=== PATIENT | female | born 1955 | race Caucasian/White ===

== ENCOUNTER 2018-04-28 14:00 | Inpatient (IN) | payer MEDICARE ==
--- NOTE | 2018-04-28 15:23 | CT ---
CT ABDOMEN AND PELVIS NONCONTRAST: History: Flank pain. FINDINGS: Each renal collecting system, ureter and urinary bladder are decompressed without stone evident. Lack of contrast limits evaluation for other abnormalities. Small hiatal hernia. Post-operative skinner es anterior abdominal wall. Degenerative changes lumbar spine. Gallbladder not visible. Possibly surg ically absent. Diverticula arise from the colon. Stranding within the fat within the right lower quad rant surrounds the sigmoid colon where there is extensive diverticular disease. No free air or free f luid. IMPRESSION: 1. No CT evidence of urinary tract obstruction or calcification. 2. Right lower quadrant mesenteric inflammation, favored to represent sigmoid diverticulitis. 3. Small hiatal hernia. POS: MEE
[2018-04-28] MEDS ORDERED: cefTRIAXone\\ROCEPHIN 1 GM VIAL ONE (16:23)
[2018-04-28] MEDS ORDERED: metroNIDAZOLE 250 MG TAB ONE (16:23)
[2018-04-28] MEDS ORDERED: Sodium Chloride 0.9% 100 ML ONE (16:23)
[2018-04-28] MEDS ORDERED: Bisacodyl 5 MG TAB PO PRN (18:05)
[2018-04-28] MEDS ORDERED: Dextrose 5% in Water 1,000 ML IV PRN (18:05)
[2018-04-28] MEDS ORDERED: Dextrose 50% Abboject 50 ML SYRINGE SLOW IVP PRN (18:05)
[2018-04-28] MEDS ORDERED: Diltiazem 125 MG in Sodium Chloride 0.9% 100 ML IVPB PRN (18:12)
--- NOTE | 2018-04-28 19:27 | HP ---
PRIMARY CARE PROVIDER: oRsalinda Gray M.D. CHIEF COMPLAINT: Abdominal pain. HISTORY OF PRESENT ILLNESS: Ms. Silva is a pleasant 62-year-old lady who was seen at [facility] on 04/28/2018 following transfer from [place] emergency room. She reports that about 2 months ago, she was noted to have a heart rate that went up and down. She saw a tank pumper for the same. She was hospitalized at [facility] in March for approximately a week for accidental overdose on insulin. She was released from the hospital on 04/03. During that hospitalization, she was found to have sleep disorder breathing. She was started on BiPAP. However, due to insurance reasons, she was unable to find a place to do her sleep study. Over the last 3 days, she has had right lower quadrant pain, sharp, on and off, no known aggravating or relieving factors, greater than 10/10 at its worst, not accompanied by fevers or chills. She denies any nausea or vomiting. She denies any chest pain. She came to the emergency room because of ongoing abdominal pain. She denies any history of diverticular disease. REVIEW OF SYSTEMS: All other systems reviewed and found to be negative. PAST MEDICAL HISTORY: Gastroesophageal reflux disease, diabetes mellitus, dyslipidemia, hypertension, sleep disordered breathing and arrhythmia. PAST SURGICAL HISTORY: Bilateral knee replacement, cholecystectomy, and tonsillectomy. PSYCHIATRIC HISTORY: None. SOCIAL HISTORY: The patient denies tobacco use, alcohol use or recreational drug use. FAMILY HISTORY: No family history of premature coronary artery disease. ALLERGIES: PENICILLIN. CURRENT MEDICATIONS: Eliquis 5 mg 2 times a day, aspirin 81 mg daily, atenolol 50 mg daily, Lasix 20 mg daily, hydralazine 25 mg daily, Imitrex 50 mg daily, Novolin R by sliding scale, magnesium sulfate injection and simvastatin 10 mg daily. PHYSICAL EXAMINATION: GENERAL: On examination, Ms. Silva is awake and alert, not in acute distress. She is morbidly obese. VITAL SIGNS: Blood pressure is 119/73, pulse 94, respiratory rate 16, and oxygen saturation 97% on 2 liters. EYES: No scleral icterus. No conjunctival pallor. ENT: Moist mucosal membranes, no oropharyngeal erythema or exudates. NECK: Supple, nontender. Trachea is midline. RESPIRATORY: Accessory muscles of breathing are not active. Chest wall movements are symmetric bilaterally. LUNGS: Clear to auscultation without wheeze, rhonchi or crepitations. CARDIOVASCULAR: S1 and S2 are heard, regular. Peripheral pulses are palpable. No carotid bruit, no pericardial rub. ABDOMEN: Soft, distended, mild right lower quadrant tenderness, no guarding or rigidity, bowel sounds heard. NEUROLOGIC: Cranial nerves II-XII intact. Deep tendon reflexes 2+. MUSCULOSKELETAL: Power is 5/5 in all 4 extremities. SKIN: No rashes or subcutaneous nodules. LYMPHATIC: No cervical lymphadenopathy. PSYCHIATRIC: Normal mood, normal affect. The patient is oriented to person, place, and time. IMAGING DATA AND LABORATORY DATA: Ms. Silva's labs and investigations were reviewed. I reviewed her electrocardiogram, which shows atrial flutter with variable atrioventricular block. I also reviewed her chest x-ray, which does not show any pulmonary infiltrates. She also had a noncontrast CT scan of the abdomen and pelvis, which did not show any CT evidence of urinary tract obstruction or calcification. She had right lower quadrant mesenteric inflammation, favored to represent sigmoid diverticulitis. She also had a small hiatal hernia. She has leukocytosis with 12,400 white cells, of which 75 % are neutrophils, microcytic anemia with hemoglobin 10.1, normal platelet count , normal electrolytes, elevated blood urea nitrogen of 21, elevated creatinine of 1.61, creatinine was 1.66 in 06/2016, normal total bilirubin, normal AST, normal ALT, normal alkaline phosphatase and normal troponin I. BNP is mildly elevated at 191. Urinalysis is positive for a small amount of bilirubin and ketones. ASSESSMENT AND PLAN: Ms. Silva is a pleasant 62-year-old lady who was seen at [facility] following transfer from the emergency room at [place]. Her problem list includes: 1. Sepsis: Ms. Silva's presentation meets the criteria for sepsis, suspected source of infection, diverticulitis. She was tachycardic with a pulse rate of 123 on presentation and has leukocytosis. She will be admitted to the hospital for further management. 2. Diverticulitis: She will be treated with intravenous ciprofloxacin, adjusted for renal function and intravenous metronidazole. Gastroenterology Service will be consulted. She will be started on clear fluid diet at this time. 3. Atrial flutter: She is currently on a Cardizem drip. When she presented to the emergency room at [place], she was found to be in atrial flutter which is why she was transferred to this emergency room. She subsequently underwent a CT scan of the abdomen for her abdominal complaints. She was initially on a Cardizem drip. She also received oral Cardizem. I will continue her on Cardizem drip for now. We will also continue on Eliquis. We will consult Cardiology Service for opinion and help with management. 4. Diabetes mellitus: Start Accu-Cheks, insulin sliding scale. 5. Morbid obesity: Patient reports losing 17 pounds over the last 3 weeks intentionally. We will consult dietitian for help. 6. Hypertension: Monitor vital signs and titrate antihypertensives as needed. 7. Dyslipidemia: Continue statin. Many thanks for allowing me to participate in your patient's care. Please feel free to contact me with any questions or concerns. LEVEL OF RISK: High. LEVEL OF COMPLEXITY: High. MTDD
[2018-04-28] MEDS ORDERED: Heparin 5,000 UNITS/ML VIAL SC SCH (21:00)
[2018-04-28] MEDS: metroNIDAZOLE 500 MG in Premix Bag 1 BAG IVPB SCH (21:11)
[2018-04-29 00:33] VITALS: BMI 67.3
[2018-04-29 05:33] LABS: #Basophils 0.1 thou/uL (0.0-0.2); #Eosinphils 0.1 thou/uL (0.0-0.7); #Monocytes 0.9 thou/uL (0.11-0.59); #Neutrophils 7.4 thou/uL (1.40-6.50); %Basophils 0.6 % (0.0-1.0); %Eosinophils 1.1 % (0.0-10.0); %Lymphocytes 10.7 % (21.0-51.0); %Monocytes 9.9 % (0.0-10.0); %Neutrophils 77.8 % (42.0-75.0); Hemoglobin 10.2 g/dL (12.0-16.0); Mean Corpuscular HGB CONC 30.8 g/dL (32.0-36.0); Mean Corpuscular Hemoglobin 26.1 pg (27.0-31.0); Mean Corpuscular Volume 84.7 fL (78.0-98.0); Mean Platelet Volume 7.6 fL (7.4-10.4); Platelet Count 277 thou/uL (130-400); White Blood Cell (WBC) Count 9.6 thou/uL (4.8-10.8)
[2018-04-29 05:46] LABS: Anion Gap 16 mmol/L (10-20); BUN (Urea Nitrogen) 18 mg/dL (9.8-20.1); Calc. Creatinine Clearance 110 mL/min (70-130); Calcium 9.5 mg/dL (7.8-10.44); Carbon Dioxide 21 mmol/L (23-31); Chloride 103 mmol/L (98-107); Estimated GFR-MDRD 36; Glucose 137 mg/dL (80-115); Sodium 135 mmol/L (136-145)
[2018-04-29] MEDS: metroNIDAZOLE 500 MG in Premix Bag 1 BAG IVPB SCH ×3 (06:04→21:00)
[2018-04-29] MEDS ORDERED: Ondansetron HCl/PF 4 MG/2 ML Vial SLOW IVP PRN (07:49)
--- NOTE | 2018-04-29 11:47 | PDOC.PN ---
- Subjective Encounter Start Date: 04/29/18 Encounter Start Time: 07:00 Pt seen for followup re: acute diverticulitis. Abdo pain is better. Nausea+. Did not sleep well. No vomiting. - Objective MAR Reviewed: Yes Vital Signs & Weight: Vital Signs (12 hours) Temp Pulse Resp BP Pulse Ox 04/29/18 11:23 97.7 F 104 H 19 172/75 H 95 04/29/18 08:07 97.7 F 110 H 18 131/98 H 95 04/29/18 06:33 125 H 14 156/84 H 97 04/29/18 00:17 130 H 24 H 95 04/29/18 00:00 99 164/92 H Weight Admit Weight 392 lb 12.8 oz Weight 392 lb 12.8 oz I&O: 04/28/18 04/29/18 04/30/18 06:59 06:59 06:59 Intake Total 1000 Output Total 1300 Balance -300 Result Diagrams: 04/29/18 05:17 04/29/18 05:17 Additional Labs: Accuchecks 04/29/18 04/29/18 04/28/18 10:28 05:33 19:27 POC Glucose 167 H 142 H 112 H EKG Reviewed by me: Yes (Tele: [email or web address] [email or web address]) Phys Exam - Physical Examination Morbid obesity HEENT: moist MMs, sclera anicteric, oral pharynx no lesions, 2+ tonsils Neck: supple Respiratory: no wheezing, no rales, no rhonchi, clear to auscultation bilateral Cardiovascular: no rub, irregular S1, S2 Gastrointestinal: soft, non-tender, positive bowel sounds distention Neurological: moves all 4 limbs Psychiatric: normal affect, A&O x 3 Dx/Plan (1) Acute diverticulitis Code(s): K57.92 - DVTRCLI OF INTEST, PART UNSP, W/O PERF OR ABSCESS W/O BLEED Status: Acute Comment: continue IV ciprofloxacin and metronidazole (2) Atrial fibrillation with RVR Code(s): I48.91 - UNSPECIFIED ATRIAL FIBRILLATION Status: Acute Comment: increase cardizem rate to 7.5 mg/hr (3) Insomnia Code(s): G47.00 - INSOMNIA, UNSPECIFIED Status: Acute Comment: start PRN melatonin (4) Morbid obesity Code(s): E66.01 - MORBID (SEVERE) OBESITY DUE TO EXCESS CALORIES Status: Chronic Comment: dietitian to see pt (5) DM2 (diabetes mellitus, type 2) Status: Chronic Comment: resume home meds, continue insulin sliding scale and accuchecks (6) Sleep-disordered breathing Code(s): G47.30 - SLEEP APNEA, UNSPECIFIED Status: Chronic Comment: BiPAP while asleep - Plan continue antibiotics, out of bed/ambulate * . Review of Systems - Review of Systems Constitutional: negative: fever, chills, sweats, weakness, malaise Respiratory: negative: Cough, Shortness of Breath, SOB with Excertion, Pleuritic Pain, Wheezing Cardiovascular: negative: chest pain, palpitations, orthopnea, paroxysmal nocturnal dyspnea, edema, light headedness Gastrointestinal: Nausea, Abdominal Pain. negative: Vomiting, Diarrhea, Constipation, Melena, Hematochezia Genitourinary: negative: Dysuria, Frequency, Incontinence, Hematuria, Retention Skin: negative: Rash, Lesions, [place], Bruising - Medications/Allergies Allergies/Adverse Reactions: Allergies Allergy/AdvReac Type Severity Reaction Status Date / Time Penicillins Allergy Verified 04/29/18 00:36 Medications: Current Medications Bisacodyl (Dulcolax) 10 mg PO DAILYPRN PRN PRN Reason: Constipation Dextrose/Water (Dextrose 50%) 25 gm SLOW IVP PRN PRN PRN Reason: Hypoglycemia Glucagon (Glucagon) 1 mg IM PRN PRN PRN Reason: Hypoglycemia Metronidazole 500 mg/ Device 100 mls @ 100 mls/hr IVPB Q8HR [facility] Last Admin: 04/29/18 06:04 Dose: 100 mls Ciprofloxacin/Dextrose 400 mg/ (Device) 200 mls @ 200 mls/hr IVPB Q18H [facility] Last Admin: 04/28/18 21:11 Dose: 200 mls Dextrose/Water (D5w) 1,000 mls @ 0 mls/hr IV .Q0M PRN PRN Reason: Hypoglycemia Diltiazem HCl 125 mg/ Sodium (Chloride) 125 mls @ 5 mls/hr IVPB INF PRN; Protocol PRN Reason: For HR>120 sustained Last Admin: 04/29/18 00:13 Dose: 125 mls Insulin Human Lispro (Humalog) 0 units SC .MILD SLIDING SCALE PRN PRN Reason: Mild Correctional Scale Melatonin (Melatonin) 3 mg PO HS PRN PRN Reason: Insomnia Morphine Sulfate (Morphine) 2 mg SLOW IVP Q6H PRN PRN Reason: Pain Ondansetron HCl (Zofran) 4 mg SLOW IVP Q6H PRN PRN Reason: Nausea/Vomiting Last Admin: 04/29/18 08:02 Dose: 4 mg
[2018-04-29] MEDS ORDERED: Ondansetron ODT 4 MG TAB PO PRN (11:51)
[2018-04-29] MEDS ORDERED: SUMAtriptan Succinate 50 MG TAB PO PRN (12:12)
[2018-04-29] MEDS ORDERED: Dextrose 5% in Water 1,000 ML IV PRN (12:16)
[2018-04-29] MEDS ORDERED: Dextrose 50% Abboject 50 ML SYRINGE IVP PRN (12:16)
[2018-04-29] MEDS: hydrALAZINE 25 MG TAB PO SCH ×2 (14:13→21:00)
--- NOTE | 2018-04-29 15:16 | CON ---
DATE OF CONSULTATION: 04/29/2018 REASON FOR CONSULTATION: Atrial flutter. PRIMARY CARE PROVIDER: Dr. Vishal Rivas HISTORY OF PRESENT ILLNESS: Ms. Silva is a 62-year-old woman who recently presented with diverticul itis. She was found to be in atrial flutter requiring IV Cardizem. She gives a history of being diagnosed with atrial flutter with palpitations 3 months ago. She was s een and evaluated by calciner feeder of unknown name. She was placed on Eliquis. She appeared to be ra te controlled. There was no mention of an ablation. She then presented with the above with lower ab dominal discomfort and increased heart rate. She was placed on 7.5 mg of Cardizem. PAST MEDICAL HISTORY: Obstructive sleep apnea, diabetes mellitus and hypertension. CURRENT MEDICATIONS: Not listed. ALLERGIES: PENICILLIN. SOCIAL HISTORY: No current tobacco or alcohol use. REVIEW OF SYSTEMS: Ten-point review of systems was reviewed as above, otherwise negative. PHYSICAL EXAMINATION: VITAL SIGNS: Blood pressure 110/70, pulse 80, respirations 20. GENERAL: Patient is a pleasant female who is in no acute distress. The patient appears her stated ag e. She does appear [place]wick[place]. NEUROLOGIC: The patient is alert and oriented times 3 with no focal neurologic deficits. HEENT: Sclerae without icterus. Mouth has moist mucous membranes with normal pallor. NECK: No JVD. Carotid upstroke brisk. No bruits bilaterally. LUNGS: Clear to auscultation with unlabored respirations. BACK: No scoliosis or kyphosis. CARDIAC: Irregularly irregular. ABDOMEN: Soft, nontender, nondistended. No peritoneal signs present. No hepatosplenomegaly. No abn ormal striae. EXTREMITIES: 2+ femoral and 2+ dorsalis pedis pulses. No cyanosis, clubbing, 1+ edema. SKIN: No gross abnormalities. PERTINENT LABORATORY DATA: Currently not available on [employer]ant[employer]. IMPRESSION: 1. Atrial flutter. 2. Diverticulitis. RECOMMENDATIONS: We will add p.o. Cardizem as I try and titrate down her IV Cardizem. She has been on Eliquis for a month. We will ask Dr. Vann to consult. May consider ablation, although at this c urrent scenario may need to defer as outpatient.
[2018-04-29] MEDS: HumaLOG 300 UNITS/3 ML VIAL SC SCH (17:42)
[2018-04-29] MEDS: Mometasone/Formoterol 120 PUFF INHALER INH SCH (18:52)
[2018-04-29] MEDS: Simvastatin 40 MG TAB PO SCH (20:59)
[2018-04-29] MEDS: Lubiprostone 24 MCG CAP PO SCH (20:59)
[2018-04-29] MEDS: Apixaban 5 MG TAB PO SCH (21:00)
[2018-04-29] MEDS: Melatonin 3 MG TAB PO PRN (22:02)
[2018-04-30 05:32] LABS: #Basophils 0.1 thou/uL (0.0-0.2); #Eosinphils 0.2 thou/uL (0.0-0.7); #Lymphocytes 1.6 thou/uL (1.20-3.40); #Monocytes 0.9 thou/uL (0.11-0.59); #Neutrophils 8.2 thou/uL (1.40-6.50); %Basophils 0.5 % (0.0-1.0); %Eosinophils 1.9 % (0.0-10.0); %Lymphocytes 14.5 % (21.0-51.0); %Monocytes 8.1 % (0.0-10.0); Hemoglobin 10.9 g/dL (12.0-16.0); Mean Corpuscular HGB CONC 30.9 g/dL (32.0-36.0); Mean Corpuscular Volume 84.2 fL (78.0-98.0); Mean Platelet Volume 6.9 fL (7.4-10.4); Platelet Count 340 thou/uL (130-400); RBC Distribution Width 15.1 % (11.5-14.5)
[2018-04-30 05:48] LABS: Anion Gap 14 mmol/L (10-20); BUN (Urea Nitrogen) 14 mg/dL (9.8-20.1); Calc. Creatinine Clearance 108 mL/min (70-130); Calcium 10.3 mg/dL (7.8-10.44); Carbon Dioxide 24 mmol/L (23-31); Chloride 102 mmol/L (98-107); Estimated GFR-MDRD 36; Glucose 169 mg/dL (80-115); Iron 21 ug/dL (50-170); Iron Binding Capacity, Total 349 mcg/dL (265-497); Potassium 4.4 mmol/L (3.5-5.1); Sodium 136 mmol/L (136-145)
[2018-04-30] MEDS: metroNIDAZOLE 500 MG in Premix Bag 1 BAG IVPB SCH ×3 (05:56→21:31)
[2018-04-30] MEDS: Mometasone/Formoterol 120 PUFF INHALER INH SCH ×2 (06:36→19:14)
[2018-04-30] MEDS: Fish Oil 1,000 MG CAP PO SCH (08:50)
[2018-04-30] MEDS: Fluticasone Propionate Nasal Spray 16 gm Bottle NASAL SCH (08:51)
[2018-04-30] MEDS: HumaLOG 300 UNITS/3 ML VIAL SC SCH ×3 (08:52→17:05)
[2018-04-30] MEDS: Insulin Glargine 20 UNITS in Pre-Filled Syringe 1 EACH SC SCH (08:52)
[2018-04-30] MEDS ORDERED: Non-Formulary Item 1 EACH (Insulin Degludec [Tresiba Flextouch U-100] 20 UNIT) SC SCH (09:00)
--- NOTE | 2018-04-30 09:52 | CON ---
DATE OF CONSULTATION: 04/29/2018 REASON FOR CONSULTATION: Possible diverticulitis. HISTORY OF PRESENT ILLNESS: Ms. Silva is a 62-year-old female who came to the hospital on 8 for abdominal pain. She apparently was in [place] ER and some right lower quadrant pain, worsenin g for about the past 4 days. In the emergency room there, she was found to have atrial flutter and s he was transferred here. She reports that she has had a previous history of labile heart rate and bautista s to see a tool and die maker/designer as a result of that. She has been started on medicines for fibrillation here and is waiting to see cannoneer. In regard to her abdominal pain, she denies having diver ticulitis in the past. This pain was dull and became more and more sharp in the right lower quadrant , was nonradiating. There is no relation to meal. She has had decreased appetite. There was no ove rt fever or chills. She denied any nausea or vomiting. She has not been having much in the way of Snapdeal for the last couple of days, because she has not been eating much. She was hospitaliz ed at [facility] in March apparently for accidental overdose on insulin. On that admission, she had some issues with sleep apnea, started on BiPAP, but apparently she has not had a sleep study yet. She has had prior history of anemia and underwent upper and lower endoscopy with Dr. Dumont many years ago, in 2007 it seems, and those studies were negative. She reports that she had endoscopy and colon oscopy recently about 6 years ago in [place] with the surgeons at the [facility] that were normal . PAST MEDICAL HISTORY: Reflux, diabetes, dyslipidemia, hypertension, hypoventilation syndrome, possib ly sleep apnea, and arrhythmia. PAST SURGICAL HISTORY: Bilateral knee replacements, cholecystectomy, tonsillectomy, previous upper a nd lower endoscopies as noted above. PAST PSYCHIATRIC HISTORY: None. SOCIAL HISTORY: The patient denies tobacco use. She stopped recently. She does not drink or use dr oliveira. She has recently started a diet and lost 17 pounds. ALLERGIES: PENICILLIN. HOME MEDICATIONS: Eliquis, atenolol, Lasix, hydralazine, Imitrex, Novolin insulin, magnesium, simvas tatin. PRESENT MEDICATIONS HERE IN THE HOSPITAL: Eliquis, Ecotrin, Dulcolax, ciprofloxacin IV daily, diltia zem, Flonase, insulin sliding scale, Amitiza, melatonin, Flagyl 500 IV q.8 hours, p.r.n. Zofran, Zoco r, and Imitrex. REVIEW OF SYSTEMS: Negative for dyspnea on exertion. Negative for chest pain. Negative for dysphag ia or odynophagia. Negative for melena, hematochezia, or hematemesis. PHYSICAL EXAMINATION: VITAL SIGNS: Temperature is 98.6, pulse 106-110, blood pressure 154/78. GENERAL: She is overweight. She is in no distress. LUNGS: Decreased breath sounds in the bases. HEART: Faint sounds. EXTREMITIES: No clubbing, cyanosis. There is a slight stasis, but no overt edema. ABDOMEN: Notable for large pannus. There is no rebound. There is no guarding. SKIN: Without sores or lesions. There is mild tenderness in the right lower quadrant. There is no evidence of inguinal or femoral hernias. LABORATORY STUDIES: Hemoglobin was 10.2 on admission; MCV was 74, now 84; platelet count 289; 75% se gs; white count 12.4, now 8.6. Sodium 135, potassium 5, BUN and creatinine 18 and 1.45. Electrolyte s are normal. Liver function test normal with AST and ALT of 10. Troponins were negative. RADIOGRAPHIC STUDIES: The patient had a CAT scan, which showed some mild stranding in the right lowe r quadrant, noncontrast study. There is no evidence of free fluid. I have reviewed these films like ly it is related to diverticular disease in the sigmoid colon over to the right side of the abd omen. ASSESSMENT: 1. Noncomplicated diverticulitis, may be related to recent change in diet and rapid weight loss. 2. Atrial fibrillation. 3. History of CO2 retention with sleep. It is unclear if it is hypoventilation syndrome or some typ e of sleep apnea. 4. Diabetes. 5. Anemia, microcytic, mild. RECOMMENDATIONS: 1. Iron studies. 2. Continue present antibiotics. 3. Consider further GI workup in the outpatient setting. We are going to get her colonoscopy and EG D report from [place] recently and see what those showed. May not need to re-embark on any workup.
[2018-04-30] MEDS: Lubiprostone 24 MCG CAP PO SCH ×2 (10:34→21:31)
[2018-04-30] MEDS: Apixaban 5 MG TAB PO SCH ×2 (10:34→21:30)
[2018-04-30] MEDS: Aspirin 81 mg Enteric Coated Tablet PO SCH (10:36)
[2018-04-30] MEDS: Magnesium Oxide 400 MG TAB PO SCH (10:36)
[2018-04-30] MEDS: Multivitamin W/ Minerals 1 TAB PO SCH (10:37)
[2018-04-30] MEDS: Furosemide 20 MG TAB PO SCH (10:37)
[2018-04-30] MEDS: hydrALAZINE 25 MG TAB PO SCH ×3 (10:37→21:30)
[2018-04-30] MEDS: Ubidecarenone 50 MG CAP PO SCH (10:52)
--- NOTE | 2018-04-30 11:24 | CON ---
DATE OF CONSULTATION: 04/29/2018 ELECTROPHYSIOLOGY CONSULTATION REFERRING PHYSICIAN: MD Dr. Dank Perdue, I am seeing Ms. Silva at our [facility] Telemetry Floor as an electrophysiol ogy oracle wms consultant. Her problems are: 1. Persistent typical atrial flutter. 2. Abdominal discomfort, possible diverticulitis followed by GI, on IV antibiotics, improving. 3. Chronic anticoagulation with Eliquis. 4. History of sleep apnea. 5. Morbid obesity. 6. Type 2 diabetes. 7. Hypertension. ALLERGIES: PENICILLINS. MEDICATIONS AT HOME: Included carboxymethyl/gly/poly80/PF eye drops, simvastatin, Victoza, Zofran, m ultivitamin, magnesium oxide, Amitiza, insulin, sumatriptan, hydralazine, furosemide, fluticasone, om ega-3 fatty acid, Ubidecarenone, atenolol, aspirin, apixaban. SUBJECTIVE: Ms. Silva is here with stomach issues. She was admitted with a diagnosis of diverticul itis. Sepsis was also suspected. She was placed on IV antibiotics and improving. EKGs did reveal s ustaining atrial flutter, although reasonable rate control was achieved with IV diltiazem from initia l rapid rates. She never passed out. No stroke-like symptoms. No neurological deficits. No fever, chills, cough currently. Rest of 12-point system otherwise unremarkable. Of note, the patient has been losing about 70 pounds last month or so. The discomforts in the abdomen was worse, 10/10, but n ot markedly improving. OBJECTIVE: VITAL SIGNS: Blood pressure is 154/78, heart rate is 106, respirations 17, temperature 98.8 degrees Fahrenheit currently. The initial heart rates were up to 130 beats per minute, but blood pressure wa s never low. Lowest registered were systolic 130s. GENERAL: This is an alert, oriented, morbidly obese woman with admit weight of 390 pounds, BMI is ca lculated to be 67. NECK: Supple. Jugular veins are not visible due to obesity. CHEST: Coarse. CARDIOVASCULAR: Distant heart sounds are heard. Irregularly irregular. S1, S2 are variable. I do not hear murmur or gallop. ABDOMEN: Benign. Currently, discomfort is resolved. Bowel sounds are positive. EXTREMITIES: Lower extremity without edema, clubbing, or cyanosis. Pulses are adequate. NEUROLOGIC: Nonfocal. MUSCULOSKELETAL: No joint swelling or deformities. SKIN: Without rash. DATABASE: The EKG was reviewed, revealed typical atrial flutter with ventricular rates of 74 beats p er minute. No significant ST-T changes. LABORATORY DATA: White count is 9.6, hemoglobin 10.2, platelet count is 277. Sodium 135, potassium 5, BUN is 18, creatinine 1.45. ASSESSMENT AND PLAN: Ms. Silva is a pleasant 62-year-old woman with prior history of some palpitati ons. She has typical isthmus-dependent flutter, which is steadily driving her heart very rapidly on admission, but now better controlled with the continued diltiazem drip. She had abdominal discomfort, which as I discussed with Dr. Newsome is likely to be diverticulitis. S he is receiving IV antibiotics. So far, no reaction to the continued anticoagulants and antiplatelet agent, the apixaban/aspirin, is noted. I discussed the etiology of her atrial flutter as well as the mechanism and potential treatment optio ns. We discussed option of cardioversion versus more invasive ablation therapy. I detailed my prefe rence for the ablation therapy, which would eliminate her atrial flutter circuit. On the other hand, I did detail the potential chance for additional left atrial arrhythmias. I would also detail the h igher than normal chance for complications due to her morbid obesity, which might even be prohibitive for finding access to the veins; and also anesthesia related complications could serve us. At this point, she will require further therapy for her abdominal issues. She is on Rocephin. Once stabiliz ed, we will make decision between cardioversion versus ablation therapy. Thank you again for allowing me to participate in the care of this patient.
[2018-04-30] MEDS: HumaLOG 300 UNITS/3 ML VIAL SC PRN ×2 (12:48→21:32)
[2018-04-30] MEDS: Diltiazem 125 MG in Sodium Chloride 0.9% 100 ML IVPB SCH (15:03)
--- NOTE | 2018-04-30 15:24 | PDOC.CTH ---
Cardiology Progress Note - Subjective EP progress note: Patient seen and evaluated. No new cardiac concerns or complaints today. - Objective Vital Signs Temp Pulse Resp BP Pulse Ox 04/30/18 15:11 98.3 F 137 H 16 117/76 94 L 04/30/18 12:00 98.4 F 86 14 151/76 H 04/30/18 08:00 97.3 F L 136 H 14 134/89 96 04/30/18 07:45 97.3 F L 136 H 14 96 04/30/18 04:00 97.8 F 132 H 16 164/95 H 92 L Admit Weight 392 lb 12.8 oz Weight 392 lb 12.8 oz 04/29/18 04/30/18 05/01/18 06:59 06:59 06:59 Intake Total 1000 1440 Output Total 1300 1850 Balance -300 -410 - Physical Examination General/Neuro: alert & oriented x3, NAD Neck: carotid US brisk, no JVD present Lungs: unlabored respirations, other: (distant lung sounds due to obesity) Heart: other: Abdomen: soft - Telemetry Telemetry Rhythm: Atrial flutter - Labs Result Diagrams: 04/30/18 05:10 04/30/18 05:10 - Assessment/Plan 1. CTI dependent typical atrial flutter, rate controlled on cardizem gtt. Plan for DCCV tomorrow. Antiarrythmic medication vs ablation if recurrence is seen. 2. CHADS2-VASc: 3 (female, HTN, diabetes) Continue Eliquis, no evidence of bleeding complications. 3. Morbid obesity, recommended weight loss
[2018-04-30] MEDS: (Liraglutide [Victoza 2-Pak] 1.2 MG) SC SCH (17:40)
--- NOTE | 2018-04-30 18:31 | PDOC.PN ---
- Subjective Encounter Start Date: 04/30/18 Encounter Start Time: 07:40 Pt seen for followup re: acute diverticulitis. Feels better. No chest pain or shortness of breath. - Objective MAR Reviewed: Yes Vital Signs & Weight: Vital Signs (12 hours) Temp Pulse Resp BP Pulse Ox 04/30/18 15:11 98.3 F 137 H 16 117/76 94 L 04/30/18 12:00 98.4 F 86 14 151/76 H 04/30/18 08:00 97.3 F L 136 H 14 134/89 96 04/30/18 07:45 97.3 F L 136 H 14 96 Weight Admit Weight 392 lb 12.8 oz Weight 392 lb 12.8 oz I&O: 04/29/18 04/30/18 05/01/18 06:59 06:59 06:59 Intake Total 1000 1440 Output Total 1300 1850 Balance -300 -410 Result Diagrams: 05/01/18 05:16 05/01/18 05:16 Additional Labs: Accuchecks 04/30/18 04/30/18 04/30/18 16:57 10:38 01:25 POC Glucose 150 H 243 H 164 H 04/29/18 21:04 POC Glucose 195 H EKG Reviewed by me: Yes (Tele: guanako rodrigues) Phys Exam - Physical Examination Morbid obesity HEENT: moist MMs, sclera anicteric, oral pharynx no lesions, 2+ tonsils Neck: no nodes, no JVD, supple, full ROM Respiratory: no wheezing, no rales, no rhonchi, clear to auscultation bilateral S1, S2, tachy, reg Gastrointestinal: soft, non-tender, positive bowel sounds distended Neurological: moves all 4 limbs Psychiatric: normal affect, A&O x 3 Dx/Plan (1) Acute diverticulitis Code(s): K57.92 - DVTRCLI OF INTEST, PART UNSP, W/O PERF OR ABSCESS W/O BLEED Status: Acute Comment: pt clinically improving, change to oral antibiotics, advance diet (2) Atrial flutter Code(s): I48.92 - UNSPECIFIED ATRIAL FLUTTER Status: Acute Comment: For cardioversion today (3) Insomnia Code(s): G47.00 - INSOMNIA, UNSPECIFIED Status: Acute Comment: continue melatonin as needed (4) Morbid obesity Code(s): E66.01 - MORBID (SEVERE) OBESITY DUE TO EXCESS CALORIES Status: Chronic Comment: appreciate dietitian input (5) DM2 (diabetes mellitus, type 2) Status: Chronic Comment: continue insulin sliding scale and accuchecks (6) Sleep-disordered breathing Code(s): G47.30 - SLEEP APNEA, UNSPECIFIED Status: Chronic Comment: BiPAP while asleep - Plan * . Review of Systems - Review of Systems Constitutional: weakness. negative: fever, chills, sweats, malaise Respiratory: negative: Cough, Shortness of Breath, SOB with Excertion, Pleuritic Pain, Wheezing Cardiovascular: negative: chest pain, palpitations, orthopnea, paroxysmal nocturnal dyspnea, edema, light headedness Gastrointestinal: Abdominal Pain. negative: Nausea, Vomiting, Diarrhea, Constipation, Melena, Hematochezia Genitourinary: negative: Dysuria, Frequency, Incontinence, Hematuria, Retention Skin: negative: Rash, Lesions, [place], Bruising - Medications/Allergies Allergies/Adverse Reactions: Allergies Allergy/AdvReac Type Severity Reaction Status Date / Time Penicillins Allergy Verified 04/29/18 00:36 Medications: Current Medications Apixaban (Eliquis) 5 mg PO BID [facility] Last Admin: 04/30/18 10:34 Dose: 5 mg Aspirin (Ecotrin) 81 mg PO DAILY [facility] Last Admin: 04/30/18 10:36 Dose: 81 mg Bisacodyl (Dulcolax) 10 mg PO DAILYPRN PRN PRN Reason: Constipation Coenzyme Q10 (Coenzyme Q10) 30 mg PO DAILY [facility] Last Admin: 04/30/18 10:52 Dose: Not Given Dextrose/Water (Dextrose 50%) 25 gm IVP PRN PRN PRN Reason: HYPOGLYCEMIA PROTOCOL Fish Oil (Fish Oil) 1,000 mg PO DAILY [facility] Last Admin: 04/30/18 08:50 Dose: 1,000 mg Fluticasone Propionate (Flonase Nasal [place]) 0 gm NASAL DAILY [facility] Last Admin: 04/30/18 08:51 Dose: Not Given Furosemide (Lasix) 20 mg PO DAILY [facility] Last Admin: 04/30/18 10:37 Dose: 20 mg Glucagon (Glucagon) 1 mg IM PRN PRN PRN Reason: HYPOGLYCEMIA PROTOCOL Hydralazine HCl (Apresoline) 25 mg PO TID [facility] Last Admin: 04/30/18 15:03 Dose: 25 mg Metronidazole 500 mg/ Device 100 mls @ 100 mls/hr IVPB Q8HR [facility] Last Admin: 04/30/18 15:02 Dose: 100 mls Ciprofloxacin/Dextrose 400 mg/ (Device) 200 mls @ 200 mls/hr IVPB Q18H [facility] Last Admin: 04/30/18 08:56 Dose: 200 mls Diltiazem HCl 125 mg/ Sodium (Chloride) 125 mls @ 10 mls/hr IVPB INF [facility]; Protocol Last Admin: 04/30/18 15:03 Dose: 125 mls Dextrose/Water (D5w) 1,000 mls @ 0 mls/hr IV INF PRN PRN Reason: HYPOGLYCEMIA PROTOCOL Insulin Glargine 20 units/ (Miscellaneous Medication) 0.2 mls @ 0 mls/hr SC DAILY [facility] Last Admin: 04/30/18 08:52 Dose: 0.2 mls Insulin Human Lispro (Humalog) 0 units SC .MILD SLIDING SCALE PRN PRN Reason: Mild Correctional Scale Last Admin: 04/30/18 12:48 Dose: 3 unit Insulin Human Lispro (Humalog) 8 units SC TID-WM [facility] Last Admin: 04/30/18 17:05 Dose: 8 units Iron/Minerals/Multivitamins (Theragran M) 1 tab PO DAILY [facility] Last Admin: 04/30/18 10:37 Dose: 1 tab Lubiprostone (Amitiza) 24 mcg PO BID [facility] Last Admin: 04/30/18 10:34 Dose: 24 mcg Magnesium Oxide (Magnesium Oxide) 400 mg PO DAILY [facility] Last Admin: 04/30/18 10:36 Dose: 400 mg Melatonin (Melatonin) 3 mg PO HS PRN PRN Reason: Insomnia Last Admin: 04/29/18 22:02 Dose: 3 mg Mometasone Furoate/Formoterol Fumar (Dulera 100 Mcg/5 Mcg Inhaler) 2 puff INH BID-RT [facility] Last Admin: 04/30/18 06:36 Dose: 2 puff Morphine Sulfate (Morphine) 2 mg SLOW IVP Q6H PRN PRN Reason: Pain Ondansetron HCl (Zofran) 4 mg SLOW IVP Q6H PRN PRN Reason: Nausea/Vomiting Last Admin: 04/29/18 08:02 Dose: 4 mg Ondansetron HCl (Zofran Odt) 4 mg PO Q8HR PRN PRN Reason: Nausea Pantoprazole Sodium (Protonix) 40 mg PO DAILY PAT (Liraglutide [ Victoza 2-Sonu] 1.2 Mg) 0 each SC DAILY PAT Last Admin: 04/30/18 17:40 Dose: Not Given Simvastatin (Zocor) 40 mg PO HS PAT Last Admin: 04/29/18 20:59 Dose: 40 mg Sumatriptan Succinate (Imitrex) 100 mg PO Q2H PRN PRN Reason: Headache
[2018-04-30] MEDS ORDERED: Acetaminophen 325 MG TAB PO PRN (18:58)
[2018-04-30] MEDS: Simvastatin 40 MG TAB PO SCH (21:31)
[2018-04-30] MEDS: Melatonin 3 MG TAB PO PRN (21:31)
--- NOTE | 2018-05-01 00:57 | PRG ---
DATE OF SERVICE: 04/30/2018 SUBJECTIVE: Ms. Silva states that she is feeling better. She is eating better. She remains in atr ial fibrillation and she is waiting to find out when they can do the ablation. I did talk with her c ardiologist yesterday and told him that it was okay to start her on anticoagulation if there is a nee d to do that. PRESENT MEDICATIONS: Eliquis, Ecotrin, CoQ10, diltiazem, insulin sliding scale, Flagyl IV, ciproflox acin IV. PHYSICAL EXAMINATION: VITAL SIGNS: Temperature is 98.7, pulse 136, blood pressure 134/89. GENERAL: Patient is overweight. She is resting in bed. ABDOMEN: Soft, nontender. There is no rebound or guarding. LABORATORY STUDIES: White count 11.0, hemoglobin is 10.9, platelet count is 340. BUN is 14, creatin ine is 1.49, iron is 21, TIBC 249. Ferritin is 42. Basic metabolic profile is normal. ASSESSMENT: 1. Diverticulitis, improving. No signs of complications on imaging. 2. Atrial fibrillation. She has been sore on Eliquis. She has had no signs of bleeding. RECOMMENDATIONS: Continue IV antibiotics. Hopefully, the next day or so, she can be switched to p.o . antibiotics. She should have a colonoscopy in outpatient setting, may be in 4-6 weeks after this i s resolved. Secondary to her microcytic anemia and slightly low iron stores, will follow from a dist ance. If I can be of further assistance in her care, please do not hesitate to contact.
[2018-05-01] MEDS: Diltiazem 125 MG in Sodium Chloride 0.9% 100 ML IVPB SCH (04:51)
[2018-05-01] MEDS: metroNIDAZOLE 500 MG in Premix Bag 1 BAG IVPB SCH ×2 (04:51→16:19)
[2018-05-01 05:51] LABS: #Eosinphils 0.2 thou/uL (0.0-0.7); #Lymphocytes 1.2 thou/uL (1.20-3.40); #Monocytes 0.8 thou/uL (0.11-0.59); #Neutrophils 5.6 thou/uL (1.40-6.50); %Basophils 0.6 % (0.0-1.0); %Eosinophils 3.1 % (0.0-10.0); %Lymphocytes 14.9 % (21.0-51.0); %Monocytes 9.6 % (0.0-10.0); %Neutrophils 71.7 % (42.0-75.0); Hemoglobin 9.6 g/dL (12.0-16.0); Mean Corpuscular HGB CONC 31.3 g/dL (32.0-36.0); Mean Corpuscular Hemoglobin 26.2 pg (27.0-31.0); Mean Corpuscular Volume 83.6 fL (78.0-98.0); Mean Platelet Volume 6.7 fL (7.4-10.4); Platelet Count 283 thou/uL (130-400); RBC Distribution Width 14.8 % (11.5-14.5); Red Blood Cell (RBC) Count 3.65 mill/uL (4.20-5.40); White Blood Cell (WBC) Count 7.8 thou/uL (4.8-10.8)
[2018-05-01 06:01] LABS: Anion Gap 9 mmol/L (10-20); BUN (Urea Nitrogen) 13 mg/dL (9.8-20.1); Calc. Creatinine Clearance 115 mL/min (70-130); Calcium 9.7 mg/dL (7.8-10.44); Carbon Dioxide 28 mmol/L (23-31); Chloride 102 mmol/L (98-107); Estimated GFR-MDRD 38; Glucose 144 mg/dL (80-115); Potassium 3.9 mmol/L (3.5-5.1); Sodium 135 mmol/L (136-145)
[2018-05-01] MEDS ORDERED: PROPOFOL 40 ML ONE (08:44)
[2018-05-01] MEDS: Mometasone/Formoterol 120 PUFF INHALER INH SCH ×2 (08:55→18:36)
[2018-05-01] MEDS: HumaLOG 300 UNITS/3 ML VIAL SC SCH ×3 (09:21→17:21)
[2018-05-01] MEDS: Fluticasone Propionate Nasal Spray 16 gm Bottle NASAL SCH (09:23)
[2018-05-01] MEDS: Aspirin 81 mg Enteric Coated Tablet PO SCH (09:58)
[2018-05-01] MEDS: Multivitamin W/ Minerals 1 TAB PO SCH (09:58)
[2018-05-01] MEDS: Fish Oil 1,000 MG CAP PO SCH (09:58)
[2018-05-01] MEDS: hydrALAZINE 25 MG TAB PO SCH ×3 (09:58→19:59)
[2018-05-01] MEDS: Lubiprostone 24 MCG CAP PO SCH ×2 (09:58→19:59)
[2018-05-01] MEDS: Apixaban 5 MG TAB PO SCH ×2 (09:58→19:59)
[2018-05-01] MEDS: Magnesium Oxide 400 MG TAB PO SCH (09:58)
[2018-05-01] MEDS: Ubidecarenone 50 MG CAP PO SCH (09:59)
[2018-05-01] MEDS: (Liraglutide [Victoza 2-Pak] 1.2 MG) SC SCH (09:59)
[2018-05-01] MEDS: Insulin Glargine 20 UNITS in Pre-Filled Syringe 1 EACH SC SCH (10:03)
[2018-05-01] MEDS ORDERED: Lidocaine 1% PF 5 ML VIAL ONE (11:36)
[2018-05-01] MEDS ORDERED: PROPOFOL 200 MG/20 ML VIAL ONE (11:36)
[2018-05-01] MEDS: Furosemide 20 MG TAB PO SCH (15:10)
[2018-05-01] MEDS ORDERED: Diltiazem 125 MG in Sodium Chloride 0.9% 100 ML IVPB PRN (16:11)
--- NOTE | 2018-05-01 16:40 | PDOC.PN ---
- Subjective Encounter Start Date: 05/01/18 Encounter Start Time: 08:20 Pt seen for followup re: acute diverticulitis. Denies chest pain, abdo pain is better. - Objective MAR Reviewed: Yes Vital Signs & Weight: Vital Signs (12 hours) Temp Pulse Resp BP BP Pulse Ox 05/01/18 16:11 87 18 141/73 H 93 L 05/01/18 08:55 98.0 F 138 H 18 138/89 94 L 05/01/18 08:50 98.0 F 138 H 18 94 L 05/01/18 05:04 105 H 130/83 05/01/18 04:41 97.7 F 96 18 169/115 H 95 Weight Admit Weight 392 lb 12.8 oz Weight 392 lb 12.8 oz I&O: 04/30/18 05/01/18 05/02/18 06:59 06:59 06:59 Intake Total 1440 3725 Output Total 1850 1200 Balance -410 2525 Result Diagrams: 05/01/18 05:16 05/01/18 05:16 Additional Labs: Accuchecks 04/30/18 04/30/18 21:04 16:57 POC Glucose 214 H 150 H EKG Reviewed by me: Yes (Tele: guanako rodrigues) Phys Exam - Physical Examination Morbid obesity HEENT: moist MMs Neck: supple Respiratory: clear to auscultation bilateral S1, S2, reg, tachy Gastrointestinal: soft, non-tender Neurological: moves all 4 limbs Psychiatric: normal affect Dx/Plan (1) Acute diverticulitis Code(s): K57.92 - DVTRCLI OF INTEST, PART UNSP, W/O PERF OR ABSCESS W/O BLEED Status: Acute Comment: pt clinically improving, change to oral antibiotics, advance diet (2) Atrial flutter Code(s): I48.92 - UNSPECIFIED ATRIAL FLUTTER Status: Acute Comment: For cardioversion today (3) Insomnia Code(s): G47.00 - INSOMNIA, UNSPECIFIED Status: Acute Comment: continue melatonin as needed (4) Morbid obesity Code(s): E66.01 - MORBID (SEVERE) OBESITY DUE TO EXCESS CALORIES Status: Chronic Comment: appreciate dietitian input (5) DM2 (diabetes mellitus, type 2) Status: Chronic Comment: continue insulin sliding scale and accuchecks (6) Sleep-disordered breathing Code(s): G47.30 - SLEEP APNEA, UNSPECIFIED Status: Chronic Comment: BiPAP while asleep - Plan * . Review of Systems - Review of Systems Respiratory: negative: Cough, Shortness of Breath, SOB with Excertion, Pleuritic Pain, Wheezing Cardiovascular: negative: chest pain, palpitations, orthopnea, paroxysmal nocturnal dyspnea, edema, light headedness Gastrointestinal: Abdominal Pain - Medications/Allergies Allergies/Adverse Reactions: Allergies Allergy/AdvReac Type Severity Reaction Status Date / Time Penicillins Allergy Verified 04/29/18 00:36 Medications: Current Medications Acetaminophen (Tylenol) 650 mg PO Q6H PRN PRN Reason: Pain Last Admin: 04/30/18 19:08 Dose: 650 mg Apixaban (Eliquis) 5 mg PO BID [facility] Last Admin: 05/01/18 09:58 Dose: 5 mg Aspirin (Ecotrin) 81 mg PO DAILY [facility] Last Admin: 05/01/18 09:58 Dose: 81 mg Bisacodyl (Dulcolax) 10 mg PO DAILYPRN PRN PRN Reason: Constipation Coenzyme Q10 (Coenzyme Q10) 30 mg PO DAILY [facility] Last Admin: 05/01/18 09:59 Dose: Not Given Dextrose/Water (Dextrose 50%) 25 gm IVP PRN PRN PRN Reason: HYPOGLYCEMIA PROTOCOL Fish Oil (Fish Oil) 1,000 mg PO DAILY [facility] Last Admin: 05/01/18 09:58 Dose: 1,000 mg Fluticasone Propionate (Flonase Nasal [place]) 0 gm NASAL DAILY [facility] Last Admin: 05/01/18 09:23 Dose: Not Given Furosemide (Lasix) 20 mg PO DAILY [facility] Last Admin: 05/01/18 15:10 Dose: Not Given Glucagon (Glucagon) 1 mg IM PRN PRN PRN Reason: HYPOGLYCEMIA PROTOCOL Hydralazine HCl (Apresoline) 25 mg PO TID [facility] Last Admin: 05/01/18 16:21 Dose: 25 mg Metronidazole 500 mg/ Device 100 mls @ 100 mls/hr IVPB Q8HR [facility] Last Admin: 05/01/18 16:19 Dose: 100 mls Ciprofloxacin/Dextrose 400 mg/ (Device) 200 mls @ 200 mls/hr IVPB Q18H [facility] Last Admin: 05/01/18 01:45 Dose: 200 mls Dextrose/Water (D5w) 1,000 mls @ 0 mls/hr IV INF PRN PRN Reason: HYPOGLYCEMIA PROTOCOL Insulin Glargine 20 units/ (Miscellaneous Medication) 0.2 mls @ 0 mls/hr SC DAILY [facility] Last Admin: 05/01/18 10:03 Dose: 0.2 mls Diltiazem HCl 125 mg/ Sodium (Chloride) 125 mls @ 10 mls/hr IVPB INF PRN; Protocol PRN Reason: RECURRENT AFL Insulin Human Lispro (Humalog) 0 units SC .MILD SLIDING SCALE PRN PRN Reason: Mild Correctional Scale Last Admin: 04/30/18 21:32 Dose: 3 unit Insulin Human Lispro (Humalog) 8 units SC TID-WM [facility] Last Admin: 05/01/18 13:42 Dose: Not Given Iron/Minerals/Multivitamins (Theragran M) 1 tab PO DAILY [facility] Last Admin: 05/01/18 09:58 Dose: 1 tab Lubiprostone (Amitiza) 24 mcg PO BID [facility] Last Admin: 05/01/18 09:58 Dose: 24 mcg Magnesium Oxide (Magnesium Oxide) 400 mg PO DAILY [facility] Last Admin: 05/01/18 09:58 Dose: 400 mg Melatonin (Melatonin) 3 mg PO HS PRN PRN Reason: Insomnia Last Admin: 04/30/18 21:31 Dose: 3 mg Mometasone Furoate/Formoterol Fumar (Dulera 100 Mcg/5 Mcg Inhaler) 2 puff INH BID-RT [facility] Last Admin: 05/01/18 08:55 Dose: 2 puff Morphine Sulfate (Morphine) 2 mg SLOW IVP Q6H PRN PRN Reason: Pain Ondansetron HCl (Zofran) 4 mg SLOW IVP Q6H PRN PRN Reason: Nausea/Vomiting Last Admin: 04/29/18 08:02 Dose: 4 mg Ondansetron HCl (Zofran Odt) 4 mg PO Q8HR PRN PRN Reason: Nausea Pantoprazole Sodium (Protonix) 40 mg PO DAILY [facility] Last Admin: 05/01/18 09:03 Dose: 40 mg (Liraglutide [ Victoza 2-Sonu] 1.2 Mg) 0 each SC DAILY [facility] Last Admin: 05/01/18 09:59 Dose: Not Given Simvastatin (Zocor) 40 mg PO HS [facility] Last Admin: 04/30/18 21:31 Dose: 40 mg Sumatriptan Succinate (Imitrex) 100 mg PO Q2H PRN PRN Reason: Headache
--- NOTE | 2018-05-01 19:25 | OP ---
DATE OF SERVICE: 05/01/2018 CARDIOVERSION REPORT REASON FOR PROCEDURE: Ms. Silva is a 62-year-old woman with history of normal LV function, but morb id obesity, who presented with a possible diverticulitis, but also found to be in soft atrial flutter requiring IV diltiazem for rate control, suboptimally controlling her heart rate. She has been anti coagulated with Eliquis for over a month, here for cardioversion. DESCRIPTION OF PROCEDURE: The patient received propofol by Anesthesia specialist. After adequate se dation achieved, a 300 joule synchronized shock promptly converted the patient back to sinus rhythm. CONCLUSION: Successful cardioversion. PLAN: Continue rate controlling agents if recurrent atrial flutter, consider antiarrhythmic agents v ersus ablation. Also continue oral anticoagulation for now.
[2018-05-01] MEDS: Ciprofloxacin 500 MG TAB PO SCH (19:58)
[2018-05-01] MEDS: Simvastatin 40 MG TAB PO SCH (19:59)
[2018-05-01] MEDS: metroNIDAZOLE 500 MG TAB PO SCH (19:59)
[2018-05-01] MEDS: HumaLOG 300 UNITS/3 ML VIAL SC PRN (20:07)
[2018-05-02] MEDS: Ciprofloxacin 500 MG TAB PO SCH (06:29)
[2018-05-02] MEDS: HumaLOG 300 UNITS/3 ML VIAL SC SCH ×3 (08:19→17:53)
[2018-05-02] MEDS: Ubidecarenone 50 MG CAP PO SCH (08:21)
[2018-05-02] MEDS: Fish Oil 1,000 MG CAP PO SCH (08:21)
[2018-05-02] MEDS: metroNIDAZOLE 500 MG TAB PO SCH ×2 (08:21→15:26)
[2018-05-02] MEDS: Apixaban 5 MG TAB PO SCH (08:21)
[2018-05-02] MEDS: Insulin Glargine 20 UNITS in Pre-Filled Syringe 1 EACH SC SCH (08:22)
[2018-05-02] MEDS: Aspirin 81 mg Enteric Coated Tablet PO SCH (08:22)
[2018-05-02] MEDS: Furosemide 20 MG TAB PO SCH (08:22)
[2018-05-02] MEDS: hydrALAZINE 25 MG TAB PO SCH ×2 (08:22→15:26)
[2018-05-02] MEDS: Lubiprostone 24 MCG CAP PO SCH (08:22)
[2018-05-02] MEDS: Multivitamin W/ Minerals 1 TAB PO SCH (08:22)
[2018-05-02] MEDS: Magnesium Oxide 400 MG TAB PO SCH (08:22)
[2018-05-02] MEDS: (Liraglutide [Victoza 2-Pak] 1.2 MG) SC SCH (08:23)
[2018-05-02] MEDS: Mometasone/Formoterol 120 PUFF INHALER INH SCH ×2 (08:53→18:43)
[2018-05-02] MEDS: Fluticasone Propionate Nasal Spray 16 gm Bottle NASAL SCH (09:28)
--- NOTE | 2018-05-02 16:31 | PDOC.CTH ---
Cardiology Progress Note - Subjective Doing well. No new issues. - Objective Vital Signs Temp Pulse Resp BP Pulse Ox 05/02/18 15:29 80 16 168/86 H 95 05/02/18 12:27 97.9 F 80 18 160/77 H 96 05/02/18 08:53 89 16 05/02/18 08:50 98.9 F 89 16 142/70 H 95 Admit Weight 392 lb 12.8 oz Weight 392 lb 11.2 oz 05/01/18 05/02/18 05/03/18 06:59 06:59 06:59 Intake Total 3725 100 Output Total 1200 Balance 2525 100 - Physical Examination General/Neuro: alert & oriented x3, NAD Neck: no JVD present Lungs: CTA, unlabored respirations Heart: RRR Abdomen: NT/ND Extremities: other: (no edema.) - Telemetry Telemetry Rhythm: NSR - Labs Result Diagrams: 05/01/18 05:16 05/01/18 05:16 - Assessment/Plan 1. Atrial flutter s/p DCCV 2. Diverticulitis. PLAN: - On Eliquis for stroke prophylaxis. - Will switch her Diltiazem drip to PO.
[2018-05-02 17:35] VITALS: BP 162/77; TEMP 98.4
[2018-05-02] MEDS ORDERED: Atorvastatin Calcium 20 MG TAB PO SCH (21:00)
--- NOTE | 2018-05-03 21:51 | DIS ---
Patient was seen and examined by me on the date of discharge. Patient was stable for discharge. Patient does not have any complaints at the time, physical exams within normal limits, patient at baseline. DISCHARGE DIAGNOSES: Acute diverticulitis, atrial fibrillation with rapid ventricular response, diabetes mellitus type 2, insomnia, sleep disordered breathing. CONSULTANTS: GI, Electrophysiology, Cardiology. HOSPITAL COURSE: Ms. Silva is a 62-year-old female with past medical history of GERD, diabetes mellitus, dyslipidemia, hypertension, and sleep disordered breathing, who presented to [facility] with right lower quadrant pain, which has been going on for 3 weeks. Patient described the pain as sharp and it was intermittent. It was 10/10 and was accompanied with aggressive pain. On workup, patient was found to have diverticulitis and a small hernia located at the right inguinal area. Patient was also found to be in atrial flutter. Labs were ordered, which showed white count of 9.6, hemoglobin of 10.2, platelets of 277. Electrolytes that was ordered showed sodium of 135, potassium 3.9, creatinine of 1.39, glucose of 144, BNP was 191. Urinalysis was negative for nitrite and negative for leukocyte esterase. GI was consulted at that time. Patient was started on antibiotics of ciprofloxacin and Flagyl due to the findings of diverticulitis. IV fluids were given. Patient had history of atrial fibrillation and RVR, patient was given diltiazem to control the rates. Patient was discharged on p.o. ciprofloxacin and metronidazole to complete at home. Patient was also continued on her home dose of aspirin, atenolol, Eliquis, Lasix, hydralazine since patient has history of hypertension, and we will continue patient on her insulin medications at home. DISCHARGE MEDICATIONS: Refer to the electronic medical records. DISPOSITION: Patient was discharged in a good and stable condition. Patient was told to follow up with General Surgeon if she wants her inguinal hernia, which was found incidentally on CT of the abdomen and pelvis repaired. Discharge encounter took about ~ 32mins. BRITTANY
--- NOTE | 2018-05-04 09:19 | PRG ---
DATE OF SERVICE: 05/01/2018 SUBJECTIVE: Ms. Silva is having her cardioversion. She has had C. diff. OBJECTIVE: VITAL SIGNS: Temperature is 98, pulse. She is having a cardioversion. LABORATORY STUDIES: Today, white count 7.8, hemoglobin 9.6, platelet count 283. Sodium 135, potassi um 3.9, BUN and creatinine are 13 and 1.3. ASSESSMENT: Diverticulitis, improving. RECOMMENDATIONS: Advance to a bland diet. Dr. Tam will be on-call over the weekend if needed. She is doing well. I think she will be transferred to oral antibiotics for a 10-day course. We will fo llow up with her on Friday. She is still here in the hospital and can see her in the outpatient sett ing in a week or so. She is discharged.
--- NOTE | 2018-05-05 10:58 | PQF ---
JING DUKES TOMER CARLSON [id number] [facility]255 [id number] CLINICAL DOCUMENTATION CLARIFICATION FORM: POST DISCHARGE Please exercise your independent, professional judgment in responding to the clarification form. Clinical indicators are provided on the bottom of this form for your review Please check appropriate box(s) to clarify if the following diagnosis has been ruled in or ruled out: SEPSIS (CDI/Coding list diagnosis here) [ ] Ruled in diagnosis [ ] Continue to treat [ ] Resolved [ ] Ruled out diagnosis [ ] Cannot rule out diagnosis [ ] Other diagnosis [ ] Unable to determine In addition, please specify: Present on Admission (POA): [ ] Yes [ ] No [ ] Unable to determine For continuity of documentation, please document condition throughout progress notes and discharge summary. Thank You. CLINICAL INDICATORS - SIGNS / SYMPTOMS / LABS Per HP, sepsis suspected source of infection, diverticulitis - 04/28/2018 WBC, 9.6 04/29/18, 11.0 04/30/18, 7.8 05/01/18 P 123 04/28/18 - ED RISK FACTORS Diverticulitis, HP 04/28/2018 TREATMENTS Ciprofloxacin IV - PN 04/29-05/01/18 (This form is maintained as a part of the permanent medical record) 2014 [employer]. All Rights Reserved Jacqueline Salas, CCS, P[employer] MACHINE SETTER, CASC [email or web address] MTDD
== END 2018-05-02 19:30 | disposition home or self-care (01) | DRG 309 ==
LOC: ERS 14:00 → 2NO 16:20
PROVIDERS: ADMIT Internal Medicine; ATTEND Internal Medicine
PROC: 5A2204Z Restoration of Cardiac Rhythm, Single (ICD-10-PCS; principal; 2018-05-01)
DX: I48.92 Unspecified atrial flutter (principal); K57.92 Diverticulitis of intestine, part unspecified, without perforation or abscess without bleeding; Z68.44 Body mass index [BMI] 60.0-69.9, adult; I48.91 Unspecified atrial fibrillation; K21.9 Gastro-esophageal reflux disease without esophagitis; E11.9 Type 2 diabetes mellitus without complications; D64.9 Anemia, unspecified; E78.5 Hyperlipidemia, unspecified; I10 Essential (primary) hypertension; Z96.653 Presence of artificial knee joint, bilateral; Z90.49 Acquired absence of other specified parts of digestive tract; Z88.0 Allergy status to penicillin; E66.01 Morbid (severe) obesity due to excess calories; Z79.01 Long term (current) use of anticoagulants
CPT/HCPCS: 36415; 36416; 74176; 80048; 82728; 83540; 83550; 85025; 92960; 93005; 93010; 94660; 94664; 96365; 96367; J0696; J0744; J2001; J2405; J2704; J7050; Q0162

== ENCOUNTER 2018-06-24 19:30 | Outpatient (CLI) | payer MEDICARE | END 2018-06-24 19:31 | disposition home or self-care (01) | LOC: SLEEPLAB 19:30 | PROVIDERS: ATTEND Internal Medicine Pulmonary Disease | DX: G47.33 Obstructive sleep apnea (adult) (pediatric) (principal); E66.9 Obesity, unspecified; I51.9 Heart disease, unspecified; R53.83 Other fatigue; Z68.43 Body mass index [BMI] 50.0-59.9, adult | CPT/HCPCS: 95806 ==

== ENCOUNTER 2018-07-16 10:47 | Outpatient (CLI) | payer MEDICARE | END 2018-07-16 10:48 | disposition home or self-care (01) | LOC: BICMAMMO 10:47 | PROVIDERS: ATTEND Family Medicine | DX: Z12.31 Encounter for screening mammogram for malignant neoplasm of breast (principal); Z80.3 Family history of malignant neoplasm of breast | CPT/HCPCS: 77063; 77067 ==

== ENCOUNTER 2018-07-28 10:13 | Observation (INO) | payer MEDICARE ==
[2018-07-28 10:46] LABS: #Basophils 0.1 thou/uL (0.0-0.2); #Eosinphils 0.2 thou/uL (0.0-0.7); #Lymphocytes 2.4 thou/uL (1.20-3.40); #Monocytes 0.8 thou/uL (0.11-0.59); #Neutrophils 7.4 thou/uL (1.40-6.50); %Basophils 0.6 % (0.0-1.0); %Eosinophils 1.4 % (0.0-10.0); %Lymphocytes 22.3 % (21.0-51.0); %Monocytes 7.7 % (0.0-10.0); Mean Corpuscular HGB CONC 31.5 g/dL (32.0-36.0); Mean Corpuscular Hemoglobin 27.1 pg (27.0-31.0); Mean Platelet Volume 6.2 fL (7.4-10.4); Platelet Count 341 thou/uL (130-400); RBC Distribution Width 14.2 % (11.5-14.5); Red Blood Cell (RBC) Count 4.43 mill/uL (4.20-5.40); White Blood Cell (WBC) Count 10.9 thou/uL (4.8-10.8)
[2018-07-28 10:54] LABS: INR-International Normal Ratio 1.1; PTT 29.2 SEC (22.9-36.1); Prothrombin Time 13.9 SEC (12.0-14.7)
[2018-07-28 11:10] LABS: Anion Gap 13 mmol/L (10-20); BUN (Urea Nitrogen) 27 mg/dL (9.8-20.1); Calc. Creatinine Clearance 83 mL/min (70-130); Calcium 10.3 mg/dL (7.8-10.44); Carbon Dioxide 25 mmol/L (23-31); Chloride 105 mmol/L (98-107); Estimated GFR-MDRD 29; Glucose 127 mg/dL (80-115); Potassium 4.5 mmol/L (3.5-5.1); Sodium 138 mmol/L (136-145)
[2018-07-28] MEDS ORDERED: Heparin 10,000 UNITS/1 ML VIAL ONE (11:29)
[2018-07-28] MEDS ORDERED: PHENYLEPHRINE-NS 100 MCG/ML 10 ML SYRINGE ONE ×2 (13:06→13:39)
[2018-07-28] MEDS ORDERED: DOPamine 400 MG/D5W 250 ML 250 ML ONE (13:36)
[2018-07-28] MEDS ORDERED: PROPOFOL 200 MG/20 ML VIAL ONE (13:39)
[2018-07-28] MEDS ORDERED: Lidocaine 1% PF 5 ML VIAL ONE (13:39)
[2018-07-28] MEDS ORDERED: Acetaminophen/Codeine 30-300mg Tablet PO PRN ×2 (16:50)
[2018-07-28] MEDS ORDERED: Acetaminophen 325 MG TAB PO PRN (16:51)
[2018-07-28] MEDS ORDERED: Fluticasone Propionate Nasal Spray 16 gm Bottle NASAL PRN (16:53)
[2018-07-28] MEDS: HumaLOG 300 UNITS/3 ML VIAL SC SCH ×2 (17:00→19:28)
[2018-07-28] MEDS ORDERED: Ondansetron ODT 4 MG TAB PO PRN (17:02)
[2018-07-28] MEDS ORDERED: SUMAtriptan Succinate 50 MG TAB PO PRN (17:03)
[2018-07-28 17:11] VITALS: BMI 53.7
[2018-07-28] MEDS: Mometasone/Formoterol 120 PUFF INHALER INH SCH (19:20)
[2018-07-28] MEDS: Magnesium Oxide 400 MG TAB PO SCH (20:22)
[2018-07-28] MEDS: hydrALAZINE 25 MG TAB PO SCH (20:22)
[2018-07-28] MEDS: Apixaban 5 MG TAB PO SCH (20:22)
[2018-07-28] MEDS ORDERED: INSULIN DEGLUDEC SC SCH (21:00)
[2018-07-28] MEDS ORDERED: Simvastatin 40 MG TAB PO SCH (21:00)
[2018-07-28] MEDS: Lubiprostone 24 MCG CAP PO SCH (21:01)
[2018-07-28] MEDS ORDERED: Cepastat Lozenges 1 LOZ PO PRN (21:29)
[2018-07-29] MEDS: Mometasone/Formoterol 120 PUFF INHALER INH SCH (08:03)
[2018-07-29] MEDS: Apixaban 5 MG TAB PO SCH (08:33)
[2018-07-29] MEDS: Dronedarone HCl 400 MG TAB PO SCH ×2 (08:34→08:53)
[2018-07-29] MEDS: hydrALAZINE 25 MG TAB PO SCH (08:35)
[2018-07-29] MEDS: Magnesium Oxide 400 MG TAB PO SCH (08:35)
[2018-07-29] MEDS: HumaLOG 300 UNITS/3 ML VIAL SC SCH ×2 (08:55→12:12)
[2018-07-29] MEDS ORDERED: Atenolol 50 MG TAB PO SCH (09:00)
[2018-07-29] MEDS ORDERED: Aspirin 81 mg Enteric Coated Tablet PO SCH (09:00)
[2018-07-29] MEDS ORDERED: Multivitamin W/ Minerals 1 TAB PO SCH (09:00)
[2018-07-29] MEDS ORDERED: LIRAGLUTIDE 1.2 MG SC SCH (09:00)
[2018-07-29] MEDS ORDERED: Furosemide 20 MG TAB PO SCH (09:00)
[2018-07-29] MEDS ORDERED: Ubidecarenone 50 MG CAP PO SCH (09:00)
[2018-07-29] MEDS ORDERED: Bupropion 150 MG XL TAB PO SCH (09:00)
[2018-07-29] MEDS ORDERED: Dicyclomine 20 MG TAB PO SCH (09:00)
[2018-07-29] MEDS ORDERED: Fish Oil 1,000 MG CAP PO SCH (09:00)
--- NOTE | 2018-07-29 10:18 | OP ---
ELECTROPHYSIOLOGY STUDY AND RADIOFREQUENCY ABLATION REPORT DATE OF SERVICE: 07/28/2018 REFERRING PHYSICIAN: . REASON FOR PROCEDURE: Ms. Silva is a 62-year-old woman with prior history of morbid obesity and persisting atrial flutter, CHF exacerbation, prompting hospitalization a couple of months ago. She also has diabetes and hypertension. She is now in making sinus rhythm on Multaq, would like to come off Multaq therapy. Here for EP study and radiofrequency ablation procedure. DESCRIPTION OF PROCEDURE: The patient received propofol by Anesthesia specialist and general anesthesia was performed. The right femoral venous area was prepped, draped, and anesthetized using subcutaneous lidocaine and under ultrasound guidance, the right femoral vein was cannulated x2. Two 8-Malay femoral sheath was introduced through which a Decapolar catheter was advanced to the RV, His bundle, right atrium in CS position. Pacing, mapping, and recording were performed in each location. Also, a ThermoCool SFST catheter was advanced to the right atrium and 3D map of the right atrium CS His bundle location and a cavotricuspid isthmus was performed. Following findings were noted. Baseline sinus rhythm at night with a basic cycle length of 956 milliseconds, AR 181 milliseconds, QRS 63 milliseconds, QT 440 milliseconds, AH 127 milliseconds, HV 54 milliseconds. Sinus node recovery time is 1042 with corrected , Wenckebach cycle length 380 milliseconds. No VA conduction is noted. The atrial extrastimuli testing reveals AV node ERP of 600/280 milliseconds. Dual AV andre physiology was detected, but no echo beats or tachycardia was seen. With burst atrial pacing, we were able to induce atrial flutter with cycle length of 270 milliseconds. This had a typical proximal to distal CS activation and burst overdrive pacing in the cavotricuspid isthmus area revealed a short post-pacing interval equal to tachycardia cycle length lateral CS . A 3D map of the flutter was also obtained consistent with a clockwise typical atrial flutter. By doing a burst atrial pacing, also atrial fibrillation was seen, but that prompting organized atrial flutter. Following that during atrial flutter, cavotricuspid isthmus ablation was performed. We could not completely eliminate cavotricuspid isthmus conduction. Eventually, the flutter was shocked terminated. At this point with proximal CS pacing, remapping of the cavotricuspid isthmus was performed and further ablations, we were able to achieve CTI block with longest transisthmus time by the lateral side of the ablation line suggestive of unilateral cavotricuspid isthmus block. Following that dopamine was administered and the adequate cavotricuspid isthmus block was ascertained. A burst atrial pacing did not re-induce atrial fibrillation/flutter. No significant change in cardiac silhouette was seen. The patient tolerated ablation procedure well, no complication noted. CONCLUSION: 1. Typical isthmus dependent atrial flutter inducible. 2. Cavotricuspid isthmus ablation performed eliminating cavotricuspid isthmus conduction and the atrial flutter was was not re-inducible afterwards. 3. Normal sinus AV andre function. 4. Dual AV andre physiology without inducible SVT is seen. PLAN: Continue Eliquis. Stop Multaq unless recurrent atrial fibrillation seen. Multaq to be resumed. The patient may be a candidate for PVAI ablation if clinical atrial fibrillation is seen, but only after significant weight loss in the future. MTDD
--- NOTE | 2018-07-29 10:30 | DIS ---
DATE OF ADMISSION: 07/28/2018 DATE OF DISCHARGE: 07/29/2018 ADMITTING PHYSICIAN: Dr. Henri Vann DIAGNOSIS: Atrial flutter. PROCEDURES PERFORMED: Included an electrophysiology study and mapping, CTI ablation for typical atri al flutter. HISTORY OF PRESENT ILLNESS: Ms. Silva was admitted for an elective CTI ablation for her typical flu tter. This was performed the day prior after holding her Multaq. She was easily inducible for a rig ht-sided atrial flutter and CTI block was achieved. She was not inducible at the end of the procedur e. Mapping said a small amount of atrial fibrillation was also seen during EP study that was self-te rminated. She has done well postoperatively. Her vital signs have been stable. Her rhythm has been stable in sinus rhythm. She has been ambulating. Her biggest concern that she has an extremely sor e throat and hoarse voice after intubation. REVIEW OF SYSTEMS: Positive for sore throat, tender neck. Denies shortness of breath, dyspnea on ex ertion, difficulty with inspiration. Denies pain at the groin sites, denies heart racing, palpitatio ns, sharp pain, pressure, syncope, near syncope, stroke or stroke-like symptoms. Denies swelling in the extremities. OBJECTIVE: VITAL SIGNS: Temperature 97.4, heart rate is 64, oxygen 92% on room air, blood pressure 127/60, puls e 64. Hematology on admission was unremarkable. Chemistry: Creatinine 1.75, which is consistent with prio r values, otherwise unremarkable. DISCHARGE MEDICATIONS: Resumed all of her home medications except Multaq, which will be discontinued . I have instructed her to take Tylenol p.r.n. pain in her throat and also ibuprofen 200 mg p.o. q.6 hours p.r.n. moderate pain. Tylenol #3 were offered and declined. DISCHARGE INSTRUCTIONS: No soaking baths or lifting greater than 15 pounds for 1 week. Otherwise, l ight activity and resume gradually as tolerated. Watch for bleeding complications at the groin site. We will have her wear a monitor in 3-4 weeks' time and self-terminating atrial fibrillation was see n during EP study and ablation. No further atrial fibrillation is seen on monitor so we discontinued anticoagulation at that time. Evaluate at her 6 week followup. She will be contacted for a followu p appointment in the near future. She is to contact [facility] with any post-ablation concerns or questions . CONDITION ON DISCHARGE: Stable.
[2018-07-29] MEDS ORDERED: Ibuprofen 200 MG TAB PO PRN (10:37)
[2018-07-29 12:00] VITALS: BP 122/51; TEMP 98
[2018-07-29] MEDS: Lubiprostone 24 MCG CAP PO SCH (12:07)
--- NOTE | 2018-07-29 12:36 | EKG ---
Test Reason : POST Blood Pressure : / mmHG Vent. Rate : 070 BPM Atrial Rate : 070 BPM P-R Int : 168 ms QRS Dur : 098 ms QT Int : 446 ms P-R-T Axes : 047 000 048 degrees QTc Int : 481 ms Normal sinus rhythm Normal ECG When compared with ECG of 28-JUL-2018 10:49, No significant change was found Confirmed by DR. Jennifer BURGER (3) on 07/29/2018 12:36:09 PM Referred By: [facility] Confirmed By:DR. Jennifer BURGER
--- NOTE | 2018-07-29 12:41 | EKG ---
Test Reason : Blood Pressure : / mmHG Vent. Rate : 063 BPM Atrial Rate : 063 BPM P-R Int : 176 ms QRS Dur : 098 ms QT Int : 448 ms P-R-T Axes : 058 005 053 degrees QTc Int : 458 ms Normal sinus rhythm Normal ECG When compared with ECG of 28-JUL-2018 15:17, (Unconfirmed) No significant change was found Confirmed by DR. Jennifer BURGER (3) on 07/29/2018 12:41:41 PM Referred By: [facility] Confirmed By:DR. Jennifer BURGER
[2018-07-29] MEDS ORDERED: Insulin Glargine 20 UNITS in Pre-Filled Syringe 1 EACH SC SCH (21:00)
== END 2018-07-29 14:28 | disposition home or self-care (01) ==
LOC: CCL 10:13 → 2SW 17:07
PROVIDERS: ADMIT Internal Medicine Cardiovascular Disease; ATTEND Internal Medicine Cardiovascular Disease
PROC: 02583ZZ Destruction of Conduction Mechanism, Percutaneous Approach (ICD-10-PCS; principal; 2018-07-28)
PROC: 02K83ZZ Map Conduction Mechanism, Percutaneous Approach (ICD-10-PCS; 2018-07-28)
DX: I48.3 Typical atrial flutter (principal); I11.0 Hypertensive heart disease with heart failure; I50.9 Heart failure, unspecified; E11.9 Type 2 diabetes mellitus without complications; J45.909 Unspecified asthma, uncomplicated; E66.01 Morbid (severe) obesity due to excess calories; Z79.82 Long term (current) use of aspirin; Z79.899 Other long term (current) drug therapy; Z88.0 Allergy status to penicillin; Z68.41 Body mass index [BMI] 40.0-44.9, adult
CPT/HCPCS: 76942; 80048; 82962 ×2; 85025; 85610; 85730; 93005 ×2; 93613; 93623; 93653; 94640 ×2; C1730 ×2; C1769; G0378; 36415; 36416; 93010; J1265; J1644

== ENCOUNTER 2018-09-06 19:30 | Outpatient (CLI) | payer MEDICARE | END 2018-09-06 19:31 | disposition home or self-care (01) | LOC: SLEEPLAB 19:30 | PROVIDERS: ATTEND Internal Medicine Pulmonary Disease | DX: G47.33 Obstructive sleep apnea (adult) (pediatric) (principal); R53.83 Other fatigue; R06.83 Snoring; I49.9 Cardiac arrhythmia, unspecified; E66.9 Obesity, unspecified; Z68.43 Body mass index [BMI] 50.0-59.9, adult | CPT/HCPCS: 95811 ==

== ENCOUNTER 2018-10-14 11:30 | Outpatient (CLI) | payer MEDICARE | END 2018-10-14 11:31 | disposition home or self-care (01) | LOC: DTY/OP 11:30 | PROVIDERS: ATTEND Specialist | DX: Z01.818 Encounter for other preprocedural examination (principal); E66.01 Morbid (severe) obesity due to excess calories | CPT/HCPCS: 97802 ==

== ENCOUNTER 2018-10-21 06:50 | Day surgery (SDC) | payer MEDICARE ==
[2018-10-20 13:06] VITALS: BMI 48.6
--- NOTE | 2018-10-21 12:36 | OP ---
DATE OF PROCEDURE: 10/21/2018 PROCEDURE: Esophagogastroduodenoscopy. PREMEDICATION: Given by Anesthesiology Department. PREPROCEDURE DIAGNOSES: 1. Gastroesophageal reflux. 2. Preop evaluation prior to bariatric surgery. POSTPROCEDURE DIAGNOSES: 1. Normal upper endoscopy. 2. Z-line at 39 cm from the incisors. DESCRIPTION OF PROCEDURE: Written consents were obtained prior to procedure. After adequate sedation, the forward-viewing endoscope was advanced down the stomach under direct vision to the second portion of the duodenum. The duodenum appeared normal. The bulb appeared normal. The pylorus was patent. The gastric antrum, body, fundus, and cardia all appeared normal. The Z-line was regular and well demarcated and located at 39 cm from the incisors. The distal, mid, and upper esophagus appeared normal. The patient tolerated the procedure well. ASSESSMENT: Normal upper endoscopy. RECOMMENDATIONS: Proceed with surgery. Job ID: [id number]
[2018-10-21] MEDS ORDERED: PROPOFOL 200 MG/20 ML VIAL ONE (16:54)
[2018-10-21] MEDS ORDERED: Lidocaine 1% PF 5 ML VIAL ONE (16:54)
== END 2018-10-21 12:12 | disposition home or self-care (01) ==
LOC: SDC 06:50
PROVIDERS: ATTEND Internal Medicine Gastroenterology
PROC: 0DJ08ZZ Inspection of Upper Intestinal Tract, Via Natural or Artificial Opening Endoscopic (ICD-10-PCS; principal; 2018-10-21)
DX: K21.9 Gastro-esophageal reflux disease without esophagitis (principal); K59.00 Constipation, unspecified; J45.909 Unspecified asthma, uncomplicated; I48.91 Unspecified atrial fibrillation; E78.00 Pure hypercholesterolemia, unspecified; I10 Essential (primary) hypertension; G47.30 Sleep apnea, unspecified; E66.01 Morbid (severe) obesity due to excess calories; Z68.43 Body mass index [BMI] 50.0-59.9, adult; Z87.891 Personal history of nicotine dependence; Z79.01 Long term (current) use of anticoagulants; Z79.4 Long term (current) use of insulin; Z79.899 Other long term (current) drug therapy; Z88.0 Allergy status to penicillin; Z91.048 Other nonmedicinal substance allergy status
CPT/HCPCS: 36416; J2001; J2704

== ENCOUNTER 2019-07-05 13:13 | Emergency (ER) | payer MEDICARE ==
[2019-07-05 13:37] LABS: #Basophils 0.1 thou/uL (0.0-0.2); #Eosinphils 0.1 thou/uL (0.0-0.7); #Lymphocytes 1.9 thou/uL (1.20-3.40); #Monocytes 0.7 thou/uL (0.11-0.59); #Neutrophils 8.2 thou/uL (1.40-6.50); %Basophils 0.6 % (0.0-1.0); %Eosinophils 0.5 % (0.0-10.0); %Lymphocytes 17.8 % (21.0-51.0); %Neutrophils 75.1 % (42.0-75.0); Hemoglobin 12.1 g/dL (12.0-16.0); Mean Corpuscular HGB CONC 33.4 g/dL (32.0-36.0); Mean Corpuscular Hemoglobin 30.2 pg (27.0-31.0); Mean Corpuscular Volume 90.2 fL (78.0-98.0); Mean Platelet Volume 5.9 fL (7.4-10.4); Platelet Count 305 thou/uL (130-400); RBC Distribution Width 11.5 % (11.5-14.5); Red Blood Cell (RBC) Count 4.03 mill/uL (4.20-5.40); White Blood Cell (WBC) Count 10.9 thou/uL (4.8-10.8)
[2019-07-05 14:01] LABS: ALT (SGPT) 13 U/L (8-55); AST (SGOT) 14 U/L (5-34); Albumin 3.8 g/dL (3.4-4.8); Alkaline Phosphatase 102 U/L (40-110); Anion Gap 11 mmol/L (10-20); BUN (Urea Nitrogen) 24 mg/dL (9.8-20.1); Bilirubin, Total 0.4 mg/dL (0.2-1.2); Calc. Creatinine Clearance 0 mL/min (70-130); Calcium 9.5 mg/dL (7.8-10.44); Carbon Dioxide 27 mmol/L (23-31); Chloride 105 mmol/L (98-107); Estimated GFR-MDRD 30; Globulin 2.9 g/dL (2.4-3.5); Glucose 119 mg/dL (80-115); Potassium 3.9 mmol/L (3.5-5.1); Protein, Total 6.7 g/dL (6.0-8.3); Sodium 139 mmol/L (136-145)
[2019-07-05 15:42] LABS: Bilirubin Negative (Negative); Blood, Urine Negative (Negative); Clarity Clear (Clear); Glucose, Urine (Dipstick) Normal (Negative); Leukocyte Negative Leu/uL (Negative); Nitrite Negative (Negative); Protein, Urine (Dipstick) Negative (Neg-Trace); Urobilinogen Normal mg/dL (Less than 2)
--- NOTE | 2019-07-05 15:48 | CT ---
Exam: Abdomen CT without contrast Pelvic CT without contrast HISTORY: Right rib pain x1 week. COMPARISON: None FINDINGS: Abdomen CT: Lung bases:Scar/atelectasis in the left lung base. Heart size: Normal heart size. No significant pericardial fluid. Aorta: Normal caliber. No periaortic fat stranding. Solid organs: Limited evaluation by the lack of IV contrast. Grossly no solid organ abnormality. Lymph nodes: No gastrohepatic, retrocrural or periportal lymphadenopathy Gallbladder: Not appreciated and is presumed to be surgically absent. Mesentery: No mass, lymphadenopathy, free air or free fluid Kidneys: No evidence of right-sided obstructive uropathy. Mild dilatation of the left intrarenal sera ecting system and left renal pelvis. Abrupt caliber change at the left ureteropelvic junction. Left ureter is unremarkable. Alimentary canal: Limited evaluation by the lack of oral contrast. No evidence of bowel obstruction. Unremarkable ileocecal junction. Normal caliber appendix. Scattered fecal material in a nondistended, nondilated colon. Diverticulosis, without evidence of diverticulitis. Abdominal wall: Nonspecific calcification the anterior peritoneal lining. CT PELVIS: No mass, adenopathy, free air or free fluid. Surgically absent uterus. Urinary bladder: Unremarkable. Osseous structures: No lytic or blastic lesions IMPRESSION: 1. Abrupt caliber change of the left collecting system at the ureteropelvic junction. Retrograde IVP is recommended for better interrogation. Bilaterally no obstructing calculi. 2. Normal caliber appendix. 3. Diverticulosis, without evidence of diverticulitis.
[2019-07-05] MEDS ORDERED: Ketorolac Tromethamine 30 MG/ML VIAL ONE (18:10)
== END 2019-07-05 18:45 | disposition home or self-care (01) ==
LOC: ERS 13:13
DX: R10.9 Unspecified abdominal pain (principal); E11.9 Type 2 diabetes mellitus without complications; I10 Essential (primary) hypertension; E78.5 Hyperlipidemia, unspecified; I48.91 Unspecified atrial fibrillation; Z87.891 Personal history of nicotine dependence; Z79.899 Other long term (current) drug therapy
CPT/HCPCS: 36415; 74176; 80053; 81003; 83690; 85025; 96361; 96374; J1885

== ENCOUNTER 2020-03-16 07:49 | Outpatient (CLI) | payer MEDICARE ==
--- NOTE | 2020-03-16 10:08 | ULT ---
RENAL ULTRASOUND: INDICATION: UPJ obstruction. FINDINGS: Normal sonographic appearance. Right kidney measures 9.3 cm length. The left kidney measures 9.5 cm length. No hydronephrosis. Cortical thickness an cortical echogenicity appears normally maintained . The urinary bladder is mildly distended and appears unremarkable. A right ureteral jet is demonstrat ed with ultrasound. Prevoid bladder volume is recorded at 163 cc. A postvoid image of the bladder shows no residual volu me indicating complete emptying of the bladder. IMPRESSION: Unremarkable renal ultrasound. POS: [facility]
== END 2020-03-16 07:50 | disposition home or self-care (01) ==
LOC: SCSULT 07:49
PROVIDERS: ATTEND Urology
DX: Q62.39 Other obstructive defects of renal pelvis and ureter (principal)
CPT/HCPCS: 76770

== ENCOUNTER 2020-12-28 22:42 | Emergency (ER) | payer MEDICARE | END 2020-12-29 00:41 | disposition home or self-care (01) | LOC: ERS 22:42 | DX: M25.512 Pain in left shoulder (principal); I48.91 Unspecified atrial fibrillation; K21.9 Gastro-esophageal reflux disease without esophagitis; E11.9 Type 2 diabetes mellitus without complications; E78.5 Hyperlipidemia, unspecified; E78.00 Pure hypercholesterolemia, unspecified; I10 Essential (primary) hypertension; Z87.891 Personal history of nicotine dependence; Z79.01 Long term (current) use of anticoagulants; Z79.82 Long term (current) use of aspirin; Z79.899 Other long term (current) drug therapy; Z79.4 Long term (current) use of insulin | CPT/HCPCS: 93005 ==

== ENCOUNTER 2022-02-19 16:49 | Inpatient (IN) | payer MEDICARE ==
[2022-02-19 17:36] LABS: #Eosinphils 0.1 thou/uL (0.0-0.7); #Lymphocytes 2.3 thou/uL (1.20-3.40); #Monocytes 0.9 thou/uL (0.11-0.59); #Neutrophils 9.8 thou/uL (1.40-6.50); %Basophils 0.3 % (0.0-1.0); %Lymphocytes 17.3 % (21.0-51.0); %Monocytes 6.7 % (0.0-10.0); %Neutrophils 74.6 % (42.0-75.0); Hemoglobin 13.8 g/dL (12.0-16.0); Mean Corpuscular HGB CONC 30.4 g/dL (32.0-36.0); Mean Corpuscular Hemoglobin 28.9 pg (27.0-31.0); Mean Corpuscular Volume 94.9 fL (78.0-98.0); Mean Platelet Volume 6.3 fL (7.4-10.4); Platelet Count 271 thou/uL (130-400); RBC Distribution Width 12.5 % (11.5-14.5); Red Blood Cell (RBC) Count 4.79 mill/uL (4.20-5.40); White Blood Cell (WBC) Count 13.1 thou/uL (4.8-10.8)
[2022-02-19 17:58] LABS: ALT (SGPT) 13 U/L (8-55); AST (SGOT) 15 U/L (5-34); Albumin 3.6 g/dL (3.4-4.8); Alkaline Phosphatase 108 U/L (40-110); Anion Gap 9 mmol/L (10-20); BUN (Urea Nitrogen) 24 mg/dL (9.8-20.1); Bilirubin, Total 0.5 mg/dL (0.2-1.2); Calc. Creatinine Clearance 0 mL/min (70-130); Calcium 9.7 mg/dL (7.8-10.44); Carbon Dioxide 35 mmol/L (23-31); Chloride 101 mmol/L (98-107); Globulin 3.1 g/dL (2.4-3.5); Glucose 120 mg/dL (80-115); Lipase 23 U/L (8-78); Magnesium 1.4 mg/dL (1.6-2.6); Potassium 4.4 mmol/L (3.5-5.1); Protein, Total 6.7 g/dL (5.8-8.1); Sodium 141 mmol/L (136-145)
[2022-02-19] MEDS ORDERED: Nitroglycerin 2% Ointment 1 INCH/1 GM Packet ONE (17:59)
[2022-02-19] MEDS ORDERED: Aspirin 325 MG TAB ONE (18:00)
[2022-02-19] MEDS ORDERED: Furosemide 40 MG/4 ML VIAL ONE (18:00)
[2022-02-19 18:23] LABS: Bilirubin Negative (Negative); Blood, Urine Negative (Negative); Clarity Clear (Clear); Glucose, Urine (Dipstick) Normal (Negative); Ketone, Urine Negative (Negative); Leukocyte Negative Leu/uL (Negative); Nitrite Negative (Negative); Protein, Urine (Dipstick) Negative (Neg-Trace); Specific Gravity, Urine 1.009 (1.002-1.036); Urobilinogen Normal mg/dL (Less than 2); pH, Urine 6.5 (5.0-9.0)
[2022-02-19 18:31] LABS: CK (CPK) 86 U/L (29-168)
[2022-02-19] MEDS ORDERED: Ondansetron ODT 4 MG TAB PO PRN (21:36)
[2022-02-19] MEDS ORDERED: Nitroglycerin 0.4 MG TAB (25 Tab Bottle) SL PRN (21:36)
[2022-02-19] MEDS ORDERED: Dextrose 50% Abboject 50 ML SYRINGE SLOW IVP PRN (21:36)
[2022-02-19] MEDS ORDERED: Ondansetron PF 4 MG/2 ML Vial IVP PRN (21:36)
[2022-02-19] MEDS ORDERED: Dextrose 5% in Water 1,000 ML IV PRN (21:36)
[2022-02-19] MEDS ORDERED: Magnesium 2 GM/50 ML(in water) 2 GM in Premix Bag 1 BAG IVPB SCH (22:00)
[2022-02-19 22:49] LABS: Troponin I 0.015 ng/mL (< 0.028)
[2022-02-19 23:08] VITALS: BMI 56.1
[2022-02-19] MEDS ORDERED: Fluticasone Propionate Nasal Spray 16 gm Bottle NASAL PRN (23:25)
[2022-02-20 02:32] LABS: Troponin I 0.014 ng/mL (< 0.028)
[2022-02-20 05:32] LABS: Anion Gap 13 mmol/L (10-20); BUN (Urea Nitrogen) 26 mg/dL (9.8-20.1); Calc. Creatinine Clearance 75 mL/min (70-130); Calcium 9.4 mg/dL (7.8-10.44); Carbon Dioxide 30 mmol/L (23-31); Cardiac Risk 2.9 (Less than 4.5); Chloride 100 mmol/L (98-107); Cholesterol 126 mg/dl (< 200 Desired); Glucose 180 mg/dL (80-115); HDL Cholesterol 43 mg/dL (>60 Neg Risk); LDL Cholesterol, Calculated 60 mg/dL; Potassium 5.1 mmol/L (3.5-5.1); Sodium 138 mmol/L (136-145); Triglycerides 114 mg/dL (Less than 150)
[2022-02-20 06:42] LABS: Magnesium 1.7 mg/dL (1.6-2.6)
[2022-02-20] MEDS ORDERED: Apixaban 5 MG TAB PO SCH (09:00)
[2022-02-20] MEDS ORDERED: Furosemide 20 MG TAB PO SCH (09:00)
[2022-02-20] MEDS ORDERED: Liraglutide [Victoza 2-Pak] 0.6 MG/0.1 ML Pen.Injctr SC SCH (09:00)
[2022-02-20] MEDS: Mometasone 100 MCG/Formoterol 5 MCG 120 PUFF INHALER INH SCH ×2 (11:09→18:54)
[2022-02-20] MEDS ORDERED: Lactated Ringer's 1,000 ML IV SCH (12:30)
[2022-02-20] MEDS: hydrALAZINE 25 MG TAB PO SCH ×3 (12:36→20:25)
[2022-02-20] MEDS: Ubidecarenone 50 MG CAP PO SCH (12:37)
[2022-02-20] MEDS: Loratadine 10 MG TAB PO SCH (12:37)
[2022-02-20] MEDS: Multivit, Therapeutic 1 TAB PO SCH (12:37)
[2022-02-20] MEDS: Magnesium Oxide 400 MG TAB PO SCH ×2 (12:37→20:26)
[2022-02-20] MEDS: Lubiprostone 24 MCG CAP PO SCH ×2 (12:37→20:25)
[2022-02-20] MEDS: Acetaminophen 325 MG TAB PO PRN (14:48)
[2022-02-20] MEDS: HumaLOG 300 UNITS/3 ML VIAL SC PRN ×2 (18:41→20:32)
[2022-02-20] MEDS: Atorvastatin Calcium 40 MG TAB PO SCH (20:26)
[2022-02-20] MEDS: Insulin Glargine 30 UNITS/0.3 ML VIAL SC SCH (20:26)
[2022-02-20] MEDS ORDERED: Atorvastatin Calcium 20 MG TAB PO SCH (21:00)
[2022-02-21] MEDS: Mometasone 100 MCG/Formoterol 5 MCG 120 PUFF INHALER INH SCH ×2 (07:06→18:27)
[2022-02-21] MEDS: Sodium Chloride 0.9% 1,000 ML IV SCH ×2 (07:17→16:57)
[2022-02-21 08:09] LABS: Anion Gap 13 mmol/L (10-20); BUN (Urea Nitrogen) 26 mg/dL (9.8-20.1); Calc. Creatinine Clearance 97 mL/min (70-130); Calcium 9.4 mg/dL (7.8-10.44); Carbon Dioxide 29 mmol/L (23-31); Chloride 101 mmol/L (98-107); Glucose 213 mg/dL (80-115); Magnesium 1.7 mg/dL (1.6-2.6); Potassium 5.1 mmol/L (3.5-5.1); Sodium 138 mmol/L (136-145)
[2022-02-21] MEDS: hydrALAZINE 25 MG TAB PO SCH ×3 (09:20→20:36)
[2022-02-21] MEDS: Loratadine 10 MG TAB PO SCH (09:21)
[2022-02-21] MEDS: Multivit, Therapeutic 1 TAB PO SCH (09:21)
[2022-02-21] MEDS: Lubiprostone 24 MCG CAP PO SCH ×2 (09:21→20:37)
[2022-02-21] MEDS: Ubidecarenone 50 MG CAP PO SCH (09:22)
[2022-02-21] MEDS: Magnesium Oxide 400 MG TAB PO SCH ×2 (09:22→20:37)
[2022-02-21] MEDS: Acetaminophen 325 MG TAB PO PRN (11:30)
[2022-02-21 13:11] LABS: Anion Gap 9 mmol/L (10-20); BUN (Urea Nitrogen) 24 mg/dL (9.8-20.1); Calc. Creatinine Clearance 110 mL/min (70-130); Calcium 8.9 mg/dL (7.8-10.44); Carbon Dioxide 34 mmol/L (23-31); Chloride 101 mmol/L (98-107); Glucose 176 mg/dL (80-115); Potassium 4.8 mmol/L (3.5-5.1); Sodium 139 mmol/L (136-145)
[2022-02-21] MEDS ORDERED: Heparin 10,000 UNITS/ 10 ML VIAL ONE (13:44)
[2022-02-21] MEDS ORDERED: Nitroglycerin 100MG/250ML BOT 250 ML ONE (13:44)
[2022-02-21] MEDS ORDERED: Verapamil 5 MG/2 ML VIAL ONE (13:44)
[2022-02-21] MEDS ORDERED: Iopamidol 370 76% 100 ML VIAL ONE (14:01)
[2022-02-21] MEDS ORDERED: Midazolam HCl 2 mg/2 ml Vial ONE (15:37)
[2022-02-21] MEDS ORDERED: Fentanyl 100 MCG/2 ML VIAL ONE (15:37)
[2022-02-21] MEDS ORDERED: Sodium Chloride 0.9% 200 ML IV PRN (16:57)
[2022-02-21] MEDS ORDERED: Nitroglycerin 0.4 MG TAB (25 Tab Bottle) SL PRN (16:57)
[2022-02-21] MEDS ORDERED: Acetaminophen/Codeine 30-300mg Tablet PO PRN ×2 (16:57)
[2022-02-21] MEDS ORDERED: Sodium Chloride 0.9% 1,000 ML IV SCH (17:00)
[2022-02-21] MEDS: Insulin Glargine 30 UNITS/0.3 ML VIAL SC SCH (20:36)
[2022-02-21] MEDS: Atorvastatin Calcium 40 MG TAB PO SCH (20:36)
[2022-02-21] MEDS: HumaLOG 300 UNITS/3 ML VIAL SC PRN (20:37)
[2022-02-22] MEDS: HumaLOG 300 UNITS/3 ML VIAL SC PRN ×2 (06:12→11:23)
[2022-02-22 07:23] LABS: Anion Gap 8 mmol/L (10-20); BUN (Urea Nitrogen) 20 mg/dL (9.8-20.1); Calc. Creatinine Clearance 115 mL/min (70-130); Calcium 9.4 mg/dL (7.8-10.44); Carbon Dioxide 33 mmol/L (23-31); Chloride 102 mmol/L (98-107); Glucose 189 mg/dL (80-115); Potassium 4.9 mmol/L (3.5-5.1); Sodium 138 mmol/L (136-145)
[2022-02-22] MEDS: Mometasone 100 MCG/Formoterol 5 MCG 120 PUFF INHALER INH SCH (07:23)
[2022-02-22] MEDS: hydrALAZINE 25 MG TAB PO SCH ×2 (08:46→14:22)
[2022-02-22] MEDS: Ubidecarenone 50 MG CAP PO SCH (08:46)
[2022-02-22] MEDS: Lubiprostone 24 MCG CAP PO SCH (08:46)
[2022-02-22] MEDS: Magnesium Oxide 400 MG TAB PO SCH (08:47)
[2022-02-22] MEDS: Loratadine 10 MG TAB PO SCH (08:47)
[2022-02-22] MEDS: Multivit, Therapeutic 1 TAB PO SCH (08:47)
[2022-02-22] MEDS: Acetaminophen 325 MG TAB PO PRN (11:23)
[2022-02-22 11:43] VITALS: BP 188/98; TEMP 97.6
[2022-02-22] MEDS ORDERED: Insulin Glargine 30 UNITS/0.3 ML VIAL SC SCH (21:00)
== END 2022-02-22 17:24 | disposition home or self-care (01) | DRG 287 ==
LOC: ERS 16:49 → 2SW 21:24 → OBSVTOIN 02-21 17:27
PROVIDERS: ADMIT Emergency Medicine; ATTEND Student in an Organized Health Care Education/Training Program
PROC: 4A023N7 Measurement of Cardiac Sampling and Pressure, Left Heart, Percutaneous Approach (ICD-10-PCS; principal; 2022-02-21)
PROC: B2111ZZ Fluoroscopy of Multiple Coronary Arteries using Low Osmolar Contrast (ICD-10-PCS; 2022-02-21)
PROC: B2151ZZ Fluoroscopy of Left Heart using Low Osmolar Contrast (ICD-10-PCS; 2022-02-21)
DX: R07.89 Other chest pain (principal); Z20.822 Contact with and (suspected) exposure to COVID-19; I13.0 Hypertensive heart and chronic kidney disease with heart failure and stage 1 through stage 4 chronic kidney disease, or unspecified chronic kidney disease; N17.9 Acute kidney failure, unspecified; E66.2 Morbid (severe) obesity with alveolar hypoventilation; Z68.43 Body mass index [BMI] 50.0-59.9, adult; I50.32 Chronic diastolic (congestive) heart failure; G43.909 Migraine, unspecified, not intractable, without status migrainosus; E83.42 Hypomagnesemia; J45.909 Unspecified asthma, uncomplicated; E11.22 Type 2 diabetes mellitus with diabetic chronic kidney disease; I08.1 Rheumatic disorders of both mitral and tricuspid valves; E11.65 Type 2 diabetes mellitus with hyperglycemia; Z88.0 Allergy status to penicillin; Z90.710 Acquired absence of both cervix and uterus; Z82.49 Family history of ischemic heart disease and other diseases of the circulatory system; Z83.3 Family history of diabetes mellitus; Z91.09 Other allergy status, other than to drugs and biological substances; Z79.01 Long term (current) use of anticoagulants; Z79.51 Long term (current) use of inhaled steroids; Z79.4 Long term (current) use of insulin; Z79.899 Other long term (current) drug therapy; Z87.442 Personal history of urinary calculi; Z98.890 Other specified postprocedural states; Z90.49 Acquired absence of other specified parts of digestive tract; Z87.891 Personal history of nicotine dependence; Z90.89 Acquired absence of other organs; Z99.89 Dependence on other enabling machines and devices
CPT/HCPCS: 36415; 36416; 71045; 80048; 80053; 80061; 81003; 82550; 83036; 83690; 83735; 83880; 84443; 84484; 85025; 93005; 93306; 93458; 94760; 96365; 96374; 96375; 99152; G0378; J1644; J1815; J1940; J2250; J3010; J3475; J7050; J7120; Q9967; U0003; U0005

== ENCOUNTER 2023-01-12 13:33 | Observation (INO) | payer MEDICARE ==
[2023-01-12 15:21] VITALS: BMI 51.0
[2023-01-12] MEDS ORDERED: Acetaminophen 325 MG TAB PO PRN ×2 (17:02→18:45)
[2023-01-12] MEDS ORDERED: Calcium Carbonate 500 MG ChewTAB PO PRN (17:02)
[2023-01-12] MEDS ORDERED: HumaLOG 300 UNITS/3 ML VIAL SC PRN ×2 (17:02)
[2023-01-12] MEDS ORDERED: Ondansetron ODT 4 MG TAB PO PRN (17:02)
[2023-01-12] MEDS ORDERED: Dextrose 5% in Water 1,000 ML IV PRN (17:02)
[2023-01-12] MEDS ORDERED: Nitroglycerin 0.4 MG TAB (25 Tab Bottle) SL PRN ×2 (17:02→18:45)
[2023-01-12] MEDS ORDERED: Dextrose 50% Abboject 50 ML SYRINGE SLOW IVP PRN (17:02)
[2023-01-12] MEDS ORDERED: Lidocaine 2% Viscous Solution 10 ML, Aluminum & Magnesium Hydroxide 30 ML SSW SCH (17:30)
[2023-01-12 18:46] LABS: Hemoglobin A1c 7.7 % (4.0-6.0)
[2023-01-12 18:55] LABS: Troponin I Less than 0.010 ng/mL (< 0.028)
[2023-01-12] MEDS ORDERED: Atorvastatin Calcium 40 MG TAB PO SCH (21:00)
[2023-01-12] MEDS ORDERED: Insulin Glargine 30 UNITS/0.3 ML VIAL SC SCH ×2 (21:00→22:30)
[2023-01-12] MEDS: hydrALAZINE 25 MG TAB PO SCH (21:41)
[2023-01-12] MEDS: Apixaban 5 MG TAB PO SCH (21:41)
[2023-01-12] MEDS ORDERED: Mag-Al Plus 1200 MG/1200 MG/120 MG/30 ML UDCUP PO PRN (22:58)
[2023-01-13 05:23] LABS: Anion Gap 13 mmol/L (10-20); BUN (Urea Nitrogen) 17 mg/dL (9.8-20.1); Calc. Creatinine Clearance 85 mL/min (70-130); Calcium 9.8 mg/dL (7.8-10.44); Carbon Dioxide 30 mmol/L (23-31); Cardiac Risk 2.8 (Less than 4.5); Chloride 100 mmol/L (98-107); Cholesterol 122 mg/dl (< 200 Desired); Estimated GFR 36; Glucose 108 mg/dL (80-115); HDL Cholesterol 44 mg/dL (>60 Neg Risk); LDL Cholesterol, Calculated 59 mg/dL; Potassium 3.6 mmol/L (3.5-5.1); Sodium 139 mmol/L (136-145); Triglycerides 97 mg/dL (Less than 150)
[2023-01-13] MEDS ORDERED: Acetaminophen 325 MG TAB PO PRN (06:40)
[2023-01-13] MEDS ORDERED: Albuterol 200 PUFF (6.7GM INHALER) INH PRN (08:29)
[2023-01-13 08:39] VITALS: BP 158/68; TEMP 98.6
[2023-01-13] MEDS ORDERED: Furosemide 20 MG TAB PO SCH (09:00)
[2023-01-13] MEDS ORDERED: Bupropion 150 MG XL TAB PO SCH (09:00)
[2023-01-13] MEDS: Apixaban 5 MG TAB PO SCH (09:14)
[2023-01-13] MEDS: hydrALAZINE 25 MG TAB PO SCH (09:14)
[2023-01-13] MEDS ORDERED: Insulin Glargine 30 UNITS/0.3 ML VIAL SC SCH (21:00)
[2023-01-13] MEDS ORDERED: Cholecalciferol 1,000 UNITS (25 MCG) TAB PO SCH (21:00)
[2023-01-14] MEDS ORDERED: Liraglutide [Victoza 2-Pak] 0.6 MG/0.1 ML Pen.Injctr SC SCH (09:00)
== END 2023-01-13 15:01 | disposition home or self-care (01) ==
LOC: 2SW 15:00
PROVIDERS: ADMIT Student in an Organized Health Care Education/Training Program; ATTEND Student in an Organized Health Care Education/Training Program
DX: R07.89 Other chest pain (principal); E11.9 Type 2 diabetes mellitus without complications; I10 Essential (primary) hypertension; G47.33 Obstructive sleep apnea (adult) (pediatric); J45.909 Unspecified asthma, uncomplicated; E78.5 Hyperlipidemia, unspecified; I48.91 Unspecified atrial fibrillation; G43.909 Migraine, unspecified, not intractable, without status migrainosus; H04.123 Dry eye syndrome of bilateral lacrimal glands; K21.9 Gastro-esophageal reflux disease without esophagitis; E66.01 Morbid (severe) obesity due to excess calories; Z68.43 Body mass index [BMI] 50.0-59.9, adult; Z87.891 Personal history of nicotine dependence; Z79.01 Long term (current) use of anticoagulants; Z79.4 Long term (current) use of insulin; Z79.85 Long-term (current) use of injectable non-insulin antidiabetic drugs; Z79.899 Other long term (current) drug therapy; Z88.0 Allergy status to penicillin; Z91.048 Other nonmedicinal substance allergy status
CPT/HCPCS: 36415; 36416; 80048; 80061; 83036; 84443; 94760; G0378; G0379; J1815; Q0162

== ENCOUNTER 2023-10-15 16:14 | Outpatient (CLI) | payer MEDICARE | END 2023-10-15 16:15 | disposition home or self-care (01) | LOC: BICRAD 16:14 | PROVIDERS: ATTEND Family Medicine | DX: M25.511 Pain in right shoulder (principal); M19.011 Primary osteoarthritis, right shoulder ==